=== PATIENT | male | born 1975 | race Caucasian/White ===

== ENCOUNTER 2023-10-22 20:11 | Emergency (ER) | payer SELFPAY ==
[2023-10-22 20:28] VITALS: BP 152/93; PULSE 70; RESP 18; TEMP 97.8
--- NOTE | 2023-10-22 20:30 | ED ---
Psych HPI - General Chief Complaint: Psychiatric Symptoms Stated Complaint: Mental health Time Seen by Provider: 10/22/23 20:29 Source: patient, RN notes reviewed Mode of arrival: ambulatory Limitations: no limitations - History of Present Illness Initial Comments: Quick note: Patient is a 48-year-old male presented to ER with chief complaint of depression and suicidal ideation. Patient states he has not been eating much and has not been able to sleep. Denies any alcohol use. He does not have a plan currently. Has a past medical history significant for bipolar disorder, anxiety and depression. - Related Data Home Medications Medication Instructions Recorded Confirmed Acetaminophen [Tylenol] 325 - 650 mg PO Q6H PRN 10/23/23 10/23/23 Atorvastatin [Lipitor] 20 mg PO HS 10/23/23 10/23/23 L.acidoph,Paracasei, B.lactis 1 cap PO DAILY 10/23/23 10/23/23 [Probiotic] Levocetirizine Dihydrochloride 5 mg PO HS 10/23/23 10/23/23 [Xyzal] Multivitamins, Thera [Multivitamin 1 tab PO DAILY 10/23/23 10/23/23 (formulary)] [place]-3/Dha/Epa/Fish Oil [Fish Oil 1 cap PO BID 10/23/23 10/23/23 1,000 mg Softgel] Omeprazole [PriLOSEC] 20 mg PO BID 10/23/23 10/23/23 Tamsulosin HCl [Flomax] 0.4 mg PO HS 10/23/23 10/23/23 Testosterone Cap Otc 1 tab PO DAILY 10/23/23 10/23/23 busPIRone HCl [Buspar] 10 mg PO BID 10/23/23 10/23/23 lamoTRIgine [LaMICtal] 150 mg PO BID 10/23/23 10/23/23 Allergies Allergy/AdvReac Type Severity Reaction Status Date / Time No Known Allergies Allergy Verified 10/23/23 18:09 Review of Systems ROS Statement: Those systems with pertinent positive or pertinent negative responses have been documented in the HPI. ROS Other: All systems not noted in ROS Statement are negative. Past Medical History Past Medical History: No Reported History Additional Past Surgical History / Comment(s): Rotator cuff Past Psychological History: Anxiety, Bipolar, Depression Smoking Status: Current every day smoker Past Alcohol Use History: None Reported Past Drug Use History: Marijuana General Exam - General Exam Comments Initial Comments: Visual Physical Exam Vital signs reviewed General: Well-appearing, nontoxic, no acute distress. Head: Normocephalic, atraumatic Eyes: PERRLA, EOMI ENT: Airway patent Chest: Nonlabored breathing Skin: No visual rash, normal skin tone Neuro: Alert and oriented 3 Musculoskeletal: No gross abnormalities Limitations: no limitations Course Vital Signs 10/22/23 20:20 Temperature 97.8 F Pulse Rate 70 Respiratory 18 Rate Blood Pressure 152/93 O2 Sat by Pulse 98 Oximetry Medical Decision Making - Medical Decision Making I performed the quick note portion of this chart. Electronically signed by Navarro Freeman PA-C Patient eloped prior to completion of medical treatment. - Lab Data Lab Results 10/22/23 Range/Units 21:15 Urine Opiates Screen Not Detected (NotDetected) Ur Oxycodone Screen Not Detected (NotDetected) Urine Methadone Screen Not Detected (NotDetected) Ur Barbiturates Screen Not Detected (NotDetected) U Tricyclic Antidepress Not Detected (NotDetected) Ur Phencyclidine Scrn Not Detected (NotDetected) Ur Amphetamines Screen Not Detected (NotDetected) U Methamphetamines Scrn Not Detected (NotDetected) U Benzodiazepines Scrn Not Detected (NotDetected) Urine Cocaine Screen Not Detected (NotDetected) U Marijuana (THC) Screen Detected H (NotDetected) Disposition Clinical Impression: Left against medical advice Disposition: LEFT AGAINST MEDICAL ADVICE Condition: Undetermined Referrals: Zack Conway MD [Primary Care Provider] - 1-2 days Time of Disposition: 21:49
[2023-10-22 22:04] LABS: Amphetamine Screen,Urine Not Detected (NotDetected); Barbiturate Screen,Urine Not Detected (NotDetected); Benzodiazepines Screen,Urine Not Detected (NotDetected); Cocaine Screen,Urine Not Detected (NotDetected); Methadone Screen, Urine Not Detected (NotDetected); Opiate Screen,Urine Not Detected (NotDetected); Oxycodone Screen, Urine Not Detected (NotDetected); Phencyclidine Screen,Urine Not Detected (NotDetected); Tricyclic Antidepressant,Urine Not Detected (NotDetected); Urn Cannabinoid Scrn Detected (NotDetected)
== END 2023-10-22 23:52 | disposition left against medical advice (07) ==
LOC: EC 20:11
DX: R45.851 Suicidal ideations (principal); F31.9 Bipolar disorder, unspecified; F41.9 Anxiety disorder, unspecified; F17.200 Nicotine dependence, unspecified, uncomplicated; F12.90 Cannabis use, unspecified, uncomplicated; Z79.899 Other long term (current) drug therapy; Z53.29 Procedure and treatment not carried out because of patient's decision for other reasons
CPT/HCPCS: 80306; 99284

== ENCOUNTER 2023-10-23 12:19 | Inpatient (IN) | payer OTHER ==
--- NOTE | 2023-10-23 12:54 | ED ---
Psych HPI - General Source: patient, family Mode of arrival: ambulatory <Helena Aguilar - Last Filed: 10/23/23 12:53> - General Source: patient, family, RN notes reviewed Mode of arrival: ambulatory Limitations: no limitations <Royce Moncada - Last Filed: 10/24/23 08:08> - General Chief Complaint: Psychiatric Symptoms Stated Complaint: Mental Health Time Seen by Provider: 10/23/23 12:30 - History of Present Illness Initial Comments: Connotepatient is a 48-year-old male with a history of bipolar, depression, and anxiety who presents with a chief complaint of feelings of hopelessness and suicidal ideation. Patient states this has been ongoing over the past few weeks. (Helena Aguilar) 48-year-old male presents emergency department with chief complaint of needing psychiatric evaluation. Patient states he is depressed, suicidal. Patient states he just been getting worse over the last few weeks. Patient states he is on some medications he used to see a counselor but due to financial reasons he has not been seeing them. Patient denies any homicidal ideation. Patient states that he jumped out of a second story building before trying to try to harm self. (Royce Moncada) - Related Data Home Medications Medication Instructions Recorded Confirmed Acetaminophen [Tylenol] 325 - 650 mg PO Q6H PRN 10/23/23 10/23/23 Atorvastatin [Lipitor] 20 mg PO HS 10/23/23 10/23/23 L.acidoph,Paracasei, B.lactis 1 cap PO DAILY 10/23/23 10/23/23 [Probiotic] Levocetirizine Dihydrochloride 5 mg PO HS 10/23/23 10/23/23 [Xyzal] Multivitamins, Thera [Multivitamin 1 tab PO DAILY 10/23/23 10/23/23 (formulary)] [place]-3/Dha/Epa/Fish Oil [Fish Oil 1 cap PO BID 10/23/23 10/23/23 1,000 mg Softgel] Omeprazole [PriLOSEC] 20 mg PO BID 10/23/23 10/23/23 Tamsulosin HCl [Flomax] 0.4 mg PO HS 10/23/23 10/23/23 Testosterone Cap Otc 1 tab PO DAILY 10/23/23 10/23/23 busPIRone HCl [Buspar] 10 mg PO BID 10/23/23 10/23/23 lamoTRIgine [LaMICtal] 150 mg PO BID 10/23/23 10/23/23 Allergies Allergy/AdvReac Type Severity Reaction Status Date / Time No Known Allergies Allergy Verified 10/23/23 18:09 Review of Systems ROS Other: All systems not noted in ROS Statement are negative. <Helena Aguilar - Last Filed: 10/23/23 12:53> ROS Other: All systems not noted in ROS Statement are negative. <Royce Moncada - Last Filed: 10/24/23 08:08> ROS Statement: Those systems with pertinent positive or pertinent negative responses have been documented in the HPI. Past Medical History Past Medical History: Hyperlipidemia Additional Past Surgical History / Comment(s): Rotator cuff Past Psychological History: Anxiety, Bipolar, Depression Smoking Status: Current every day smoker Past Alcohol Use History: None Reported Past Drug Use History: Marijuana <Helena Aguilar - Last Filed: 10/23/23 12:53> General Exam Limitations: no limitations <Helena Aguilar - Last Filed: 10/23/23 12:53> General appearance: alert, in no apparent distress Head exam: Present: atraumatic, normocephalic, normal inspection Eye exam: Present: normal appearance, PERRL, EOMI. Absent: scleral icterus, conjunctival injection, periorbital swelling Neck exam: Present: normal inspection. Absent: tenderness, meningismus, lymphadenopathy Respiratory exam: Present: normal lung sounds bilaterally. Absent: respiratory distress, wheezes, rales, rhonchi, stridor Cardiovascular Exam: Present: regular rate, normal rhythm, normal heart sounds. Absent: systolic murmur, diastolic murmur, rubs, gallop, clicks GI/Abdominal exam: Present: soft, normal bowel sounds. Absent: distended, tende rness, guarding, rebound, rigid Neurological exam: Present: alert, oriented X3 Psychiatric exam: Present: normal affect, normal mood <Royce Moncada - Last Filed: 10/24/23 08:08> - General Exam Comments Initial Comments: Visual Physical Exam Vital signs reviewed General: Well-appearing, nontoxic, no acute distress. Head: Normocephalic, atraumatic Eyes: PERRLA, EOMI ENT: Airway patent Chest: Nonlabored breathing Skin: No visual rash, normal skin tone Neuro: Alert and oriented 3 Musculoskeletal: No gross abnormalities (Helena Aguilar) Course Vital Signs 10/23/23 12:31 Temperature 98 F Pulse Rate 81 Respiratory 16 Rate Blood Pressure 144/81 O2 Sat by Pulse 100 Oximetry Medical Decision Making <Helena Aguilar - Last Filed: 10/23/23 12:53> - Lab Data Result diagrams: 10/23/23 13:13 10/23/23 13:13 <Royce Moncada - Last Filed: 10/24/23 08:08> - Medical Decision Making I completed the quick note portion of this chart signed Helena Aguilar PA-C (Helena Aguilar) Was pt. sent in by a medical professional or institution (PRAFUL Aguilera, CHEMICAL ETCHING PROCESSOR, urgent care, hospital, or detention...) When possible be specific @ -No Did you speak to anyone other than the patient for history (EMS, parent, family, police, friend...)? What history was obtained from this source @ -No Did you review nursing and triage notes (agree or disagree)? Why? @ -I reviewed and agree with nursing and triage notes Were old charts reviewed (outside hosp., previous admission, EMS record, old EKG, old radiological studies, urgent care reports/EKG's, detention records)? Report findings @ -No old charts were reviewed Differential Diagnosis (chest pain, altered mental status, abdominal pain women, abdominal pain men, vaginal bleeding, weakness, fever, dyspnea, syncope, headache, dizziness, GI bleed, back pain, seizure, CVA, palpatations, mental health, musculoskeletal)? @ -Differential Mental Health Depression, anxiety, bipolar, psychosis, schizophrenia, borderline personality, situational depression, adjustment disorder, behavioral disorder, brain tumor, malingering, substance abuse, encephalopathy, medication reaction, dementia, hypothyroidism, degenerative neurologic disorder, lupus.... This is not meant to be all-inclusive list EKG interpreted by me (3pts min.). @ -[None X-rays interpreted by me (1pt min.). @ -None done CT interpreted by me (1pt min.). @ -None done U/S interpreted by me (1pt. min.). @ -None done What testing was considered but not performed or refused? (CT, X-rays, U/S, labs)? Why? @ -None What meds were considered but not given or refused? Why? @ -None Did you discuss the management of the patient with other professionals (professionals i.e. , PA, CHEMICAL ETCHING PROCESSOR, lab, RT, psych nurse, social service director, water resources program director, teacher, data officer, bottle caser)? Give summary @ -EPS, psychiatrist evaluated patient recommends patient be admitted Was smoking cessation discussed for >3mins.? @ -No Was critical care preformed (if so, how long)? @ -No Were there social determinants of health that impacted care today? How? (Homelessness, low income, unemployed, alcoholism, drug addiction, transportation, low edu. Level, literacy, decrease access to med. care, group home, rehab)? @ -No Was there de-escalation of care discussed even if they declined (Discuss DNR or withdrawal of care, Hospice)? DNR status @ -No What co-morbidities impacted this encounter? (DM, HTN, Smoking, COPD, CAD, Cancer, CVA, ARF, Chemo, Hep., AIDS, mental health diagnosis, sleep apnea, morbid obesity)? @ -None Was patient admitted / discharged? Hospital course, mention meds given and route, prescriptions, significant lab abnormalities, going to OR and other pert inent info. @ -[Is admitted for psychiatric treatment 3 W. Undiagnosed new problem with uncertain prognosis? @ -No Drug Therapy requiring intensive monitoring for toxicity (Heparin, Nitro, Insulin, Cardizem)? @ -No Were any procedures done? @ -No Diagnosis/symptom? @ -[Depression suicide ideation Acute, or Chronic, or Acute on Chronic? @ -Acute Uncomplicated (without systemic symptoms) or Complicated (systemic symptoms)? @ -Uncomplicated Side effects of treatment? @ -[No Exacerbation, Progression, or Severe Exacerbation? @ -No Poses a threat to life or bodily function? How? (Chest pain, [place], CA, pneumonia, PE, COPD, DKA, ARF, appy, cholecystitis, CVA, Diverticulitis, Homicidal, Suicidal, threat to staff... and all critical care pts) @ -Yes suicidal (Royce Moncada) - Lab Data Lab Results 03/04/24 03/04/24 03/04/24 Range/Units 13:07 13:13 13:13 WBC 12.5 H (3.8-10.6) k/uL RBC 4.97 (4.30-5.90) m/uL Hgb 15.0 (13.0-17.5) gm/dL Hct 45.5 (39.0-53.0) % MCV 91.6 (80.0-100.0) fL MCH 30.3 (25.0-35.0) pg MCHC 33.1 (31.0-37.0) g/dL RDW 12.4 (11.5-15.5) % Plt Count 280 (150-450) k/uL MPV 7.2 Neutrophils % 77 % Lymphocytes % 13 % Monocytes % 5 % Eosinophils % 4 % Basophils % 1 % Neutrophils # 9.6 H (1.3-7.7) k/uL Lymphocytes # 1.6 (1.0-4.8) k/uL Monocytes # 0.6 (0-1.0) k/uL Eosinophils # 0.5 (0-0.7) k/uL Basophils # 0.1 (0-0.2) k/uL Sodium 144 (137-145) mmol/L Potassium 4.4 (3.5-5.1) mmol/L Chloride 106 (98-107) mmol/L Carbon Dioxide 28 (22-30) mmol/L Anion Gap 10 mmol/L BUN 13 (9-20) mg/dL Creatinine 0.96 (0.66-1.25) mg/dL Est GFR (CKD-EPI)AfAm >90 (>60 ml/min/1.73 sqM) Est GFR (CKD-EPI)NonAf >90 (>60 ml/min/1.73 sqM) Glucose 80 (74-99) mg/dL Calcium 10.0 (8.4-10.2) mg/dL Total Bilirubin 0.6 (0.2-1.3) mg/dL AST 29 (17-59) U/L ALT 33 (4-49) U/L Alkaline Phosphatase 92 (38-126) U/L Total Protein 7.5 (6.3-8.2) g/dL Albumin 5.1 H (3.5-5.0) g/dL Urine Color Colorless Urine Appearance Clear (Clear) Urine pH 6.5 (5.0-8.0) Ur Specific [place] 1.003 (1.001-1.035) Urine Protein Negative (Negative) Urine Glucose (UA) Negative (Negative) Urine Ketones Negative (Negative) Urine Blood Negative (Negative) Urine Nitrite Negative (Negative) Urine Bilirubin Negative (Negative) Urine Urobilinogen <2.0 (<2.0) mg/dL Ur Leukocyte Esterase Negative (Negative) Urine Opiates Screen Not Detected (NotDetected) Ur Oxycodone Screen Not Detected (NotDetected) Urine Methadone Screen Not Detected (NotDetected) Ur Barbiturates Screen Not Detected (NotDetected) U Tricyclic Antidepress Not Detected (NotDetected) Ur Phencyclidine Scrn Not Detected (NotDetected) Ur Amphetamines Screen Not Detected (NotDetected) U Methamphetamines Scrn Not Detected (NotDetected) U Benzodiazepines Scrn Not Detected (NotDetected) Urine Cocaine Screen Not Detected (NotDetected) U Marijuana (THC) Screen Detected H (NotDetected) SARS-CoV-2 (PCR) (Not Detectd) 10/23/23 Range/Units 20:46 WBC (3.8-10.6) k/uL RBC (4.30-5.90) m/uL Hgb (13.0-17.5) gm/dL Hct (39.0-53.0) % MCV (80.0-100.0) fL MCH (25.0-35.0) pg MCHC (31.0-37.0) g/dL RDW (11.5-15.5) % Plt Count (150-450) k/uL MPV Neutrophils % % Lymphocytes % % Monocytes % % Eosinophils % % Basophils % % Neutrophils # (1.3-7.7) k/uL Lymphocytes # (1.0-4.8) k/uL Monocytes # (0-1.0) k/uL Eosinophils # (0-0.7) k/uL Basophils # (0-0.2) k/uL Sodium (137-145) mmol/L Potassium (3.5-5.1) mmol/L Chloride (98-107) mmol/L Carbon Dioxide (22-30) mmol/L Anion Gap mmol/L BUN (9-20) mg/dL Creatinine (0.66-1.25) mg/dL Est GFR (CKD-EPI)AfAm (>60 ml/min/1.73 sqM) Est GFR (CKD-EPI)NonAf (>60 ml/min/1.73 sqM) Glucose (74-99) mg/dL Calcium (8.4-10.2) mg/dL Total Bilirubin (0.2-1.3) mg/dL AST (17-59) U/L ALT (4-49) U/L Alkaline Phosphatase (38-126) U/L Total Protein (6.3-8.2) g/dL Albumin (3.5-5.0) g/dL Urine Color Urine Appearance (Clear) Urine pH (5.0-8.0) Ur Specific [place] (1.001-1.035) Urine Protein (Negative) Urine Glucose (UA) (Negative) Urine Ketones (Negative) Urine Blood (Negative) Urine Nitrite (Negative) Urine Bilirubin (Negative) Urine Urobilinogen (<2.0) mg/dL Ur Leukocyte Esterase (Negative) Urine Opiates Screen (NotDetected) Ur Oxycodone Screen (NotDetected) Urine Methadone Screen (NotDetected) Ur Barbiturates Screen (NotDetected) U Tricyclic Antidepress (NotDetected) Ur Phencyclidine Scrn (NotDetected) Ur Amphetamines Screen (NotDetected) U Methamphetamines Scrn (NotDetected) U Benzodiazepines Scrn (NotDetected) Urine Cocaine Screen (NotDetected) U Marijuana (THC) Screen (NotDetected) SARS-CoV-2 (PCR) Not Detected (Not Detectd) Disposition <Helena Aguilar - Last Filed: 10/23/23 12:53> Time of Disposition: 08:08 <Royce Moncada - Last Filed: 10/24/23 08:08> Clinical Impression: Depression, Suicidal ideation Disposition: TRANSFER TO PSYCH HOSP/UNIT
[2023-10-23 13:19] LABS: Appearance,Urine Clear (Clear); Bilirubin,Urine Negative (Negative); Blood,Urine Negative (Negative); Color,Urine Colorless; Glucose,Urine (UA) Negative (Negative); Ketones,Urine Negative (Negative); Leukocyte Esterase,Urine Negative (Negative); Nitrite,Urine Negative (Negative); PH, Urine 6.5 (5.0-8.0); Protein,Urine Negative (Negative); Specific Gravity,Urine 1.003 (1.001-1.035); Urobilinogen,Urine <2.0 mg/dL (<2.0)
[2023-10-23 13:21] LABS: Basophils # (A) 0.1 k/uL (0-0.2); Basophils % (A) 1 %; Eosinophils # (A) 0.5 k/uL (0-0.7); Eosinophils % (A) 4 %; HCT 45.5 % (39.0-53.0); Lymphocytes # (A) 1.6 k/uL (1.0-4.8); Lymphocytes % (A) 13 %; MCH 30.3 pg (25.0-35.0); MCHC 33.1 g/dL (31.0-37.0); MCV 91.6 fL (80.0-100.0); Mean Platelet Volume 7.2; Monocytes # (A) 0.6 k/uL (0-1.0); Monocytes % (A) 5 %; Neutrophils # (A) 9.6 k/uL (1.3-7.7); Neutrophils % (A) 77 %; Platelet Count 280 k/uL (150-450); RBC 4.97 m/uL (4.30-5.90); RDW 12.4 % (11.5-15.5); WBC 12.5 k/uL (3.8-10.6)
[2023-10-23 13:37] LABS: Amphetamine Screen,Urine Not Detected (NotDetected); Barbiturate Screen,Urine Not Detected (NotDetected); Benzodiazepines Screen,Urine Not Detected (NotDetected); Cocaine Screen,Urine Not Detected (NotDetected); Methadone Screen, Urine Not Detected (NotDetected); Opiate Screen,Urine Not Detected (NotDetected); Oxycodone Screen, Urine Not Detected (NotDetected); Phencyclidine Screen,Urine Not Detected (NotDetected); Tricyclic Antidepressant,Urine Not Detected (NotDetected); Urn Cannabinoid Scrn Detected (NotDetected)
[2023-10-23 13:41] LABS: ALT 33 U/L (4-49); AST 29 U/L (17-59); African American GFR (CKD) >90 (>60 ml/min/1.73 sqM); Albumin 5.1 g/dL (3.5-5.0); Alkaline Phosphatase 92 U/L (38-126); Anion Gap 10 mmol/L; Blood Urea Nitrogen 13 mg/dL (9-20); Carbon Dioxide 28 mmol/L (22-30); Chloride 106 mmol/L (98-107); Glucose 80 mg/dL (74-99); Non-African American GFR(CKD) >90 (>60 ml/min/1.73 sqM); Potassium 4.4 mmol/L (3.5-5.1); Sodium 144 mmol/L (137-145); Total Bilirubin 0.6 mg/dL (0.2-1.3); Total Protein 7.5 g/dL (6.3-8.2)
[2023-10-23] MEDS: NICOTINE 21MG/24HR PATCH TRANSDERM STA (18:28)
[2023-10-23] MEDS ORDERED: IBUPROFEN 600 MG TAB PO PRN (21:49)
[2023-10-23] MEDS ORDERED: HALOPERIDOL LACTATE 5 MG/ML 1 ML VIAL IM PRN (21:49)
[2023-10-23] MEDS ORDERED: haloperidoL 5 MG TAB PO PRN (21:49)
[2023-10-23] MEDS ORDERED: MAGNESIUM HYDROXIDE 2,400 MG/30 ML CUP PO PRN (21:49)
[2023-10-23] MEDS ORDERED: LORazepam 2 MG/ML INJ IM PRN (21:49)
[2023-10-23] MEDS ORDERED: ACETAMINOPHEN TAB 325 MG TAB PO PRN (21:49)
[2023-10-23] MEDS ORDERED: LORazepam 1 MG TAB PO PRN (21:49)
[2023-10-23] MEDS ORDERED: MAG HYDROX/AL HYDROX/SIMETH 355 ML BOTTLE PO PRN (21:49)
--- NOTE | 2023-10-24 04:16 | P.MDCNMH ---
History of Present Illness H&P Date: 10/24/23 Chief Complaint: Medical eval 48-year-old male with no significant past medical history Patient coming in for evaluation of his mental health. Reported feeling hopeless and suicidal ideation. Patient has history of bipolar and depression Otherwise he denies any fevers chills cough sore throat chest pain trouble breathing nausea vomiting headache focal neurodeficits denies any changes in bowel or urinary habits Patient admits to tobacco smoking and marijuana denies any alcohol review of systems Pertinent positives as noted in HPI. All other systems were reviewed and are negative on exam Constitutional: No acute distress, Eyes: Anicteric sclerae, moist conjunctiva, Pupils equal round reactive to light ENMT: NC/AT Lungs: Clear to auscultation Clear to percussion Normal respiratory effort, no accessory muscle use Cardiovascular: Heart regular in rate and rhythm, No murmurs, gallops, or rubs No peripheral edema Abdominal: Soft Nontender, no guarding, rebound or rigidity Abdomen moving with respiration Normoactive bowel sounds Extremities: No digital cyanosis No clubbing Pedal pulses intact and symmetrical Radial pulses intact and symmetrical No calf tenderness Psychiatric: Alert and oriented to person, place and time Neuro Muscles Strength 5/5 in all 4 extremities Sensation to light touch grossly present throughout Cranial nerves II-XII grossly intact Past Medical History Past Medical History: Hyperlipidemia History of Any Multi-Drug Resistant Organisms: None Reported Additional Past Surgical History / Comment(s): Rotator cuff Past Anesthesia/Blood Transfusion Reactions: No Reported Reaction Past Psychological History: Anxiety, Bipolar, Depression Smoking Status: Current every day smoker Past Alcohol Use History: None Reported Past Drug Use History: Marijuana - Past Family History Father Family Medical History: Unable to Obtain Mother Family Medical History: Unable to Obtain Medications and Allergies Home Medications Medication Instructions Recorded Confirmed Type Acetaminophen [Tylenol] 325 - 650 mg PO Q6H PRN 10/23/23 10/23/23 History Atorvastatin [Lipitor] 20 mg PO HS 10/23/23 10/23/23 History L.acidoph,Paracasei, B.lactis 1 cap PO DAILY 10/23/23 10/23/23 History [Probiotic] Levocetirizine Dihydrochloride 5 mg PO HS 10/23/23 10/23/23 History [Xyzal] Multivitamins, Thera [Multivitamin 1 tab PO DAILY 10/23/23 10/23/23 History (formulary)] [place]-3/Dha/Epa/Fish Oil [Fish Oil 1 cap PO BID 10/23/23 10/23/23 History 1,000 mg Softgel] Omeprazole [PriLOSEC] 20 mg PO BID 10/23/23 10/23/23 History Tamsulosin HCl [Flomax] 0.4 mg PO HS 10/23/23 10/23/23 History Testosterone Cap Otc 1 tab PO DAILY 10/23/23 10/23/23 History busPIRone HCl [Buspar] 10 mg PO BID 10/23/23 10/23/23 History lamoTRIgine [LaMICtal] 150 mg PO BID 10/23/23 10/23/23 History Allergies Allergy/AdvReac Type Severity Reaction Status Date / Time No Known Allergies Allergy Verified 10/23/23 18:09 Physical Exam Vitals: Vital Signs Temp Pulse Pulse Resp BP BP Pulse Ox 10/23/23 22:56 98.1 F 69 18 134/79 100 10/23/23 12:31 98 F 81 16 144/81 100 Intake and Output 10/23/23 10/23/23 10/24/23 14:59 22:59 06:59 Other: Weight 81.647 kg 77.281 kg Cranial Nerve Examination - Cranial Nerves Cranial Nerve II- Optic: Intact Cranial Nerve III- Oculomotor: Intact Cranial Nerve IV- Trochlear: Intact Cranial Nerve V- Trigeminal: Intact Cranial Nerve - Abducens: Intact Cranial Nerve VII- Facial: Intact Cranial Nerve VIII- Auditory: Intact Cranial Nerve IX- Glossopharyngeal: Intact Cranial Nerve X- Vagus: Intact Cranial Nerve XI- Accessory: Intact Cranial Nerve XII- Hypoglossal: Intact Results CBC & Chem 7: 10/23/23 13:13 10/23/23 13:13 Labs: Abnormal Lab Results - Last 24 Hours (Table) 10/23/23 10/23/23 10/23/23 Range/Units 13:07 13:13 13:13 WBC 12.5 H (3.8-10.6) k/uL Neutrophils # 9.6 H (1.3-7.7) k/uL Albumin 5.1 H (3.5-5.0) g/dL U Marijuana (THC) Screen Detected H (NotDetected) Assessment and Plan Assessment: Depression suicidal ideation Management per psych Tobacco smoking Nicotine replacement therapy Patient counseled to quit smoking Blood work reviewed white count 12.5 afebrile no identifiable focus of infection Hemoglobin 15 unremarkable Renal function unremarkable sodium 144 potassium 4.4 BUN 13 creatinine 0.4 Urinalysis unremarkable Patient stable from medical standpoint Thank you for this consultation
[2023-10-24] MEDS: NICOTINE 21MG/24HR PATCH TRANSDERM SCH (09:04)
[2023-10-24] MEDS ORDERED: NICOTINE GUM (POLACRILEX) 2 MG GUM BUCCAL PRN (10:38)
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
[2023-10-24] MEDS: busPIRone HCl 10 MG TAB PO SCH (16:37)
[2023-10-24 18:57] LABS: Chol/HDL Ratio 4.24 Ratio; LDL Cholesterol,Calculated 128.8 mg/dL (0.0-131.0)
[2023-10-24] MEDS: lamoTRIgine 100 MG TAB PO SCH (21:31)
[2023-10-24] MEDS: LORATADINE 10 MG TAB PO SCH (21:31)
[2023-10-25] MEDS: LACTOBACILLUS ACIDOPHILUS/PECT 1 EACH CAPSULE PO SCH (09:07)
--- NOTE | 2023-10-25 09:19 | P.PN ---
Subjective Progress Note Date: 10/25/23 Principal diagnosis: Adjustment disorder with mixed emotional features Bipolar disorder by history Interpersonal family issues and conflicts Relationship problems Subjective data: She reports that his is coming to see him today He says that he is coping somewhat better Patient was more open about the issues at work where he states that his boss seemed to escalate on him and that he tried to talk over him so that he did not want to be yelled back the next day He states that he then started to cry on a regular basis and that his depression 10 to get worse and worse He says that he however feels calmer and more relaxed He denies any suicidal or homicidal ideations but admits that he is somewhat lost about how to cope with stressors Mental status exam: General Appearance: Patient appears to be stated age, fair hygiene and grooming. Behavior: Patient is cooperative with this interview Speech: Patient's speech is fluent and non-pressured. Mood/Affect: Patient reports their mood is flat affect is congruent and constricted. Suicidality/Homicidality: Patient denies having any homicidal ideation intent or plan. Denies any suicidal ideation, intent or plan today. However he admits feeling overwhelmed and helpless and hopeless Perceptions: Patient denies any visual hallucinations and denies any auditory hallucinations. Though content/process: There is no evidence of any delusional thought content and thought process is linear and goal-directed. Memory and concentration: AOX3, grossly intact for the purposes of this session. Can spell "WORLD" backwards Judgment and insight: Fair Diagnosis: Adjustment disorder with mixed emotional features Bipolar disorder mixed type by history Relationship problems Assessment/Plan: Continue with current diagnosis. Patient continues to meet criteria for inpatient psychiatric admission for symptom stabilization and safety. Continue other meds as ordered. We'll continue lamotrigine as prescribed along with buspirone Patient is a good candidate for referral to outpatient counseling and beer modification with assertiveness training and improving his communication and social skills This patient is oriented mood stabilizer we'll add Zoloft 50 mg daily to start within titrated to response Discussed effects and side effects Monitor for medication compliance and for any psychotropic medication side effects. Will continue to monitor ongoing response to treatment. Encouraged participation in milieu. real estate services coordinator on board for discharge planning Encourage the patient to participate in on the [place] activities Toni Lopez M.D. Objective - Vital Signs Vital signs: Vital Signs Temp 98.2 F 10/25/23 06:59 Pulse 74 10/25/23 06:59 Resp 16 10/25/23 06:59 BP 116/73 10/25/23 06:59 Pulse Ox 94 L 10/25/23 06:59 FiO2 - Labs CBC & Chem 7: 10/23/23 13:13 10/23/23 13:13 Labs: Abnormal Lab Results - Last 24 Hours (Table) 10/23/23 10/23/23 Range/Units 13:13 13:13 Hemoglobin A1c 6.3 H (<=6.0) % Cholesterol 201.00 H (0.00-200.00) mg/dL
[2023-10-25] MEDS: traZODone HCL 50 MG TAB PO SCH ×2 (09:47→21:21)
[2023-10-26 07:19] VITALS: BP 119/56; PULSE 58; RESP 14; TEMP 97.7
--- NOTE | 2023-10-26 08:42 | P.DS ---
Providers Date of admission: 10/23/23 21:26 Attending physician: Isak Kaur MD Consults: 10/23/23 21:49 Consult Physician Routine Consulting Provider: Art Starr Consult Reason/Comments: H&P and medical Do you want consulting provider notified?: Yes Primary care physician: Zack Conway - Discharge Diagnosis(es) (1) Bipolar disorder with depression Current Visit: Yes Status: Chronic Priority: Low Hospital Course: After hospitalization patient received a routine physical examination in no acute physical issues were identified at this time that require attention Psychiatric problems had a fight included psychomotor agitation and dysphoria self-esteem and confidence and poor coping skills Therapy has focused on providing supportive care improving his coping abilities with a multimodal treatment Patient responded favorably. At The time of discharge patient was not suicidal or homicidal is formal and operational judgment and insight appears to be improved Patient's this time does not exhibit any behavior dangerous to himself or others Patient is motivated for outpatient follow-up and treatment He was discharged in stable condition with recommendation follow-up as directed Active Medications Generic Name Dose Route Start Last Admin Trade Name Freq PRN Reason Stop Dose Admin Acetaminophen 650 mg 10/23/23 21:49 Acetaminophen Tab 325 Mg Tab PO Q4HR PRN Mild Pain (Scale 1 to 3) Al Hydroxide/Mg Hydroxide 30 ml 10/23/23 21:49 Mag Hydrox/Al Hydrox/Simeth 355 Ml Bottle PO Q4HR PRN GI Upset Buspirone HCl 10 mg 10/24/23 16:28 10/25/23 21:21 Buspirone Hcl 10 Mg Tab PO 10 mg BID YADIEL Administration Haloperidol 5 mg 10/23/23 21:49 Haloperidol 5 Mg Tab PO Q6HR PRN Agitation or Acute Psychosis Haloperidol Lactate 5 mg 10/23/23 21:49 Haloperidol Lactate 5 Mg/Ml 1 Ml Vial IM Q6HR PRN Agitation or Acute Psychosis Ibuprofen 600 mg 10/23/23 21:49 Ibuprofen 600 Mg Tab PO Q6HR PRN Moderate Pain (Scale 4 to 6) Lactobacillus Acidophilus 1 each 10/25/23 09:00 10/25/23 09:07 Lactobacillus Acidophilus/Pect 1 Each Capsule PO 1 each DAILY YADIEL Administration Lamotrigine 150 mg 10/24/23 21:00 10/25/23 21:22 Lamotrigine 100 Mg Tab PO 150 mg BID YADIEL Administration Loratadine 10 mg 10/24/23 21:00 10/25/23 21:21 Loratadine 10 Mg Tab PO 10 mg HS YADIEL Administration Magnesium Hydroxide 2,400 mg 10/23/23 21:49 Magnesium Hydroxide 2,400 Mg/30 Ml Cup PO DAILY PRN Constipation Nicotine 1 patch 10/24/23 09:00 10/25/23 09:07 Nicotine 21mg/24hr Patch TRANSDERM 1 patch DAILY YADIEL Administration Nicotine Polacrilex 2 mg 10/24/23 10:38 Nicotine Gum (Polacrilex) 2 Mg Gum BUCCAL Q2HR PRN Nicotine Cravings Sertraline HCl 50 mg 10/26/23 09:00 Sertraline 50 Mg Tab PO DAILY YADIEL Trazodone HCl 50 mg 10/25/23 21:00 10/25/23 21:21 Trazodone Hcl 50 Mg Tab PO 50 mg HS YADIEL Administration Patient Condition at Discharge: Good Plan - Discharge Summary Discharge Rx Participant: Yes New Discharge Prescriptions: No Action Testosterone Cap Otc 1 tab PO DAILY [place]-3/Dha/Epa/Fish Oil [Fish Oil 1,000 mg Softgel] 1 cap PO BID Omeprazole [PriLOSEC] 20 mg PO BID busPIRone HCl [Buspar] 10 mg PO BID Atorvastatin [Lipitor] 20 mg PO HS Acetaminophen [Tylenol] 325 - 650 mg PO Q6H PRN PRN Reason: Pain Or Fever > 100.5 L.acidoph,Paracasei, B.lactis [Probiotic] 1 cap PO DAILY Multivitamins, Thera [Multivitamin (formulary)] 1 tab PO DAILY Levocetirizine Dihydrochloride [Xyzal] 5 mg PO HS lamoTRIgine [LaMICtal] 150 mg PO BID Tamsulosin HCl [Flomax] 0.4 mg PO HS Discharge Medication List Acetaminophen [Tylenol] 325 - 650 mg PO Q6H PRN 10/23/23 [History] Atorvastatin [Lipitor] 20 mg PO HS 10/23/23 [History] L.acidoph,Paracasei, B.lactis [Probiotic] 1 cap PO DAILY 10/23/23 [History] Levocetirizine Dihydrochloride [Xyzal] 5 mg PO HS 10/23/23 [History] Multivitamins, Thera [Multivitamin (formulary)] 1 tab PO DAILY 10/23/23 [History] [place]-3/Dha/Epa/Fish Oil [Fish Oil 1,000 mg Softgel] 1 cap PO BID 10/23/23 [History] Omeprazole [PriLOSEC] 20 mg PO BID 10/23/23 [History] Tamsulosin HCl [Flomax] 0.4 mg PO HS 10/23/23 [History] Testosterone Cap Otc 1 tab PO DAILY 10/23/23 [History] busPIRone HCl [Buspar] 10 mg PO BID 10/23/23 [History] lamoTRIgine [LaMICtal] 150 mg PO BID 10/23/23 [History] Follow up Appointment(s)/Referral(s): Zack Conway MD [Primary Care Provider] - 1-2 days Activity/Diet/Wound Care/Special Instructions: Avoid the use of street drugs and alcohol. Take all medications as prescribed. When you are in need of refills on your medications, please contact your medical provider and/or outpatient psychiatrist/provider to have this done. Please go to your scheduled outpatient appointment for aftercare treatment. If symptoms return or become worse, call the crisis line at and/or go to the nearest emergency room for evaluation. National Suicide Hotline 463.
[2023-10-26] MEDS: SERTRALINE 50 MG TAB PO SCH (08:50)
== END 2023-10-26 13:12 | disposition home or self-care (01) | DRG 885 ==
LOC: EC 12:19 → 3MHU 21:26
PROVIDERS: ADMIT Psychiatry & Neurology Psychiatry; ATTEND Psychiatry & Neurology Psychiatry
DX: F31.9 Bipolar disorder, unspecified (principal); R45.851 Suicidal ideations; F43.29 Adjustment disorder with other symptoms; F17.210 Nicotine dependence, cigarettes, uncomplicated; E78.5 Hyperlipidemia, unspecified; Z71.6 Tobacco abuse counseling; Z79.899 Other long term (current) drug therapy; Z91.51 Personal history of suicidal behavior; Z59.82 Transportation insecurity; Z56.4 Discord with boss and workmates; Z63.8 Other specified problems related to primary support group
CPT/HCPCS: 36415; 80053; 80061; 80306; 81003; 82075; 83036; 84443; 85025; 87635; 99285

== ENCOUNTER 2024-03-16 08:45 | Inpatient (IN) | payer OTHER ==
--- NOTE | 2024-03-16 09:06 | ED ---
General Adult HPI - General Chief complaint: Extremity Injury, Upper Stated complaint: Infection in left hand Time Seen by Provider: 03/16/24 08:57 Source: patient, RN notes reviewed Mode of arrival: ambulatory Limitations: no limitations - History of Present Illness Initial comments: Patient is a 49-year-old male presenting to the emergency department with concerns for hand infection. Patient was doing work on his deck 2 days ago. Symptoms have progressively worsened since that time. Patient did see his doctor yesterday and had his tetanus updated as well as started on Bactrim. Symptoms have progressively worsened since that time. Patient has had fevers and chills through the night. Patient states discomfort is somewhat severe. Discomfort does increase with movement. - Related Data Home Medications Medication Instructions Recorded Confirmed Atorvastatin [Lipitor] 20 mg PO HS 10/23/23 10/23/23 Levocetirizine Dihydrochloride 5 mg PO HS 10/23/23 10/23/23 [Xyzal] Multivitamins, Thera [Multivitamin 1 tab PO DAILY 10/23/23 10/23/23 (formulary)] [place]-3/Dha/Epa/Fish Oil [Fish Oil 1 cap PO BID 10/23/23 10/23/23 1,000 mg Softgel] Omeprazole [PriLOSEC] 20 mg PO BID 10/23/23 10/23/23 Tamsulosin HCl [Flomax] 0.4 mg PO HS 10/23/23 10/23/23 Testosterone Cap Otc 1 tab PO DAILY 10/23/23 10/23/23 busPIRone HCl [Buspar] 10 mg PO BID 10/23/23 10/23/23 lamoTRIgine [LaMICtal] 150 mg PO BID 10/23/23 10/23/23 Previous Rx's Medication Instructions Recorded Sertraline [Zoloft] 50 mg PO DAILY 30 Days #30 tab 10/26/23 busPIRone HCl [Buspar] 10 mg PO BID tab 10/26/23 traZODone HCL [Desyrel] 50 mg PO HS 30 Days #30 tab 10/26/23 Allergies Allergy/AdvReac Type Severity Reaction Status Date / Time No Known Allergies Allergy Verified 10/23/23 18:09 Review of Systems ROS Statement: Those systems with pertinent positive or pertinent negative responses have been documented in the HPI. ROS Other: All systems not noted in ROS Statement are negative. Constitutional: Reports: as per HPI, fever, chills Eyes: Denies: eye pain ENT: Denies: ear pain Respiratory: Denies: cough Cardiovascular: Denies: chest pain Endocrine: Denies: fatigue Gastrointestinal: Denies: abdominal pain Musculoskeletal: Reports: as per HPI. Denies: back pain Skin: Reports: as per HPI Past Medical History Past Medical History: GERD/Reflux, Hyperlipidemia History of Any Multi-Drug Resistant Organisms: None Reported Past Surgical History: Orthopedic Surgery Additional Past Surgical History / Comment(s): Rotator cuff Past Anesthesia/Blood Transfusion Reactions: No Reported Reaction Past Psychological History: Anxiety, Bipolar, Depression Smoking Status: Current every day smoker Past Alcohol Use History: None Reported Past Drug Use History: Marijuana - Past Family History Father Family Medical History: Unable to Obtain Mother Family Medical History: Unable to Obtain General Exam Limitations: no limitations General appearance: alert, in no apparent distress Head exam: Present: normocephalic Eye exam: Present: normal appearance Neck exam: Present: normal inspection Respiratory exam: Present: normal lung sounds bilaterally Cardiovascular Exam: Present: regular rate, normal rhythm Expanded Peripheral pulses: 2+: Radial (L) GI/Abdominal exam: Present: soft. Absent: tenderness Extremities exam: Present: tenderness (Patient does have erythema of the left thenar eminence on the palmar side extending to the thumb. There is some disc omfort with passive extension. There is some swelling. There is tenderness over the flexor tendon. Distally sensation is intact. Patient does hold the thumb in partial flexion) Neurological exam: Present: alert Psychiatric exam: Present: normal affect, normal mood Skin exam: Present: erythema (Left palmar thenar eminence and thumb) Course Vital Signs 03/16/24 08:50 Temperature 98.7 F Pulse Rate 68 Respiratory 16 Rate Blood Pressure 125/78 O2 Sat by Pulse 98 Oximetry Medical Decision Making - Medical Decision Making Was pt. sent in by a medical professional or institution (, PA, REFRIGERATOR GLAZIER, urgent ca re, hospital, or long-term...) When possible be specific @ -No Did you speak to anyone other than the patient for history (EMS, parent, family, police, friend...)? What history was obtained from this source @ - is present and provides additional history that patient had tetanus updated yesterday as well as negative x-ray. Did you review nursing and triage notes (agree or disagree)? Why? @ -I reviewed and agree with nursing and triage notes Were old charts reviewed (outside hosp., previous admission, EMS record, old EKG, old radiological studies, urgent care reports/EKG's, long-term records)? Report findings @ -No old charts were reviewed Differential Diagnosis (chest pain, altered mental status, abdominal pain women, abdominal pain men, vaginal bleeding, weakness, fever, dyspnea, syncope, headache, dizziness, GI bleed, back pain, seizure, CVA, palpatations, mental health, musculoskeletal)? @ -Differential Fever: Pneumonia, viral URI, endocarditis, myocarditis, pericarditis, otitis, sinusitis, peritonsillar Abscess, retropharyngeal Abscess, epiglottitis, peritonitis, appendicitis, Renay cystitis, diverticulitis, hepatitis, colitis, UTI, PID, TOA, pyelonephritis, prostatitis, epididymitis, meningitis, encephalitis, pulmonary embolism, CVA, thyroid storm, pancreatitis, adrenal crisis, cavernous sinus thrombosis, this is not meant to be an all-inclusive list. EKG interpreted by me (3pts min.). @ -As above X-rays interpreted by me (1pt min.). @ -None done CT interpreted by me (1pt min.). @ -None done U/S interpreted by me (1pt. min.). @ -None done What testing was considered but not performed or refused? (CT, X-rays, U/S, labs)? Why? @ -Labs will be ordered What meds were considered but not given or refused? Why? @ -None Did you discuss the management of the patient with other professionals (professionals i.e. , PA, REFRIGERATOR GLAZIER, lab, RT, psych nurse, psychotherapist social worker, corporate lawyer, teacher, corporate responsibility officer, rehabilitation case coordinator)? Give summary @ -Orthopedics Dr. Koch who will consult. Also discussed with medicine Dr. Coe who will admit covering Dr. Conway Was smoking cessation discussed for >3mins.? @ -No Was critical care preformed (if so, how long)? @ -No Were there social determinants of health that impacted care today? How? (Homelessness, low income, unemployed, alcoholism, drug addiction, transportation, low edu. Level, literacy, decrease access to med. care, fpc, rehab)? @ -No Was there de-escalation of care discussed even if they declined (Discuss DNR or withdrawal of care, Hospice)? DNR status @ -No What co-morbidities impacted this encounter? (DM, HTN, Smoking, COPD, CAD, Cancer, CVA, ARF, Chemo, Hep., AIDS, mental health diagnosis, sleep apnea, morbid obesity)? @ -None Was patient admitted / discharged? Hospital course, mention meds given and route, prescriptions, significant lab abnormalities, going to OR and other pertinent info. @ -Patient presents with concern for early flexor tenosynovitis. Patient will be admitted with IV antibiotics and orthopedics. Undiagnosed new problem with uncertain prognosis? @ -No Drug Therapy requiring intensive monitoring for toxicity (Heparin, Nitro, Insulin, Cardizem)? @ -No Were any procedures done? @ -No Diagnosis/symptom? @ -Hand cellulitis Acute, or Chronic, or Acute on Chronic? @ -Acute Uncomplicated (without systemic symptoms) or Complicated (systemic symptoms)? @ -Default Side effects of treatment? @ -No Exacerbation, Progression, or Severe Exacerbation? @ -No Poses a threat to life or bodily function? How? (Chest pain, USA, ID, pneumonia, PE, COPD, DKA, ARF, appy, cholecystitis, CVA, Diverticulitis, Homicidal, Suicidal, threat to staff... and all critical care pts) @ -No - Lab Data Result diagrams: 03/16/24 09:18 Lab Results 03/16/24 Range/Units 09:18 WBC 13.4 H (3.8-10.6) k/uL RBC 4.38 (4.30-5.90) m/uL Hgb 13.2 (13.0-17.5) gm/dL Hct 39.7 (39.0-53.0) % MCV 90.6 (80.0-100.0) fL MCH 30.2 (25.0-35.0) pg MCHC 33.3 (31.0-37.0) g/dL RDW 12.9 (11.5-15.5) % Plt Count 249 (150-450) k/uL MPV 7.5 Neutrophils % 82 % Lymphocytes % 10 % Monocytes % 5 % Eosinophils % 2 % Basophils % 0 % Neutrophils # 11.0 H (1.3-7.7) k/uL Lymphocytes # 1.3 (1.0-4.8) k/uL Monocytes # 0.7 (0-1.0) k/uL Eosinophils # 0.3 (0-0.7) k/uL Basophils # 0.0 (0-0.2) k/uL Disposition Clinical Impression: Cellulitis of hand Disposition: ADMITTED IP TO THIS HOSP Is patient prescribed a controlled substance at d/c from ED?: No Referrals: Zack Conway MD [Primary Care Provider] - 1-2 days Time of Disposition: 09:46
[2024-03-16] MEDS ORDERED: VANCOMYCIN IV PER PHARMACY 1 EACH MISC MISCELLANE PRN (09:07)
[2024-03-16] MEDS ORDERED: ACETAMINOPHEN TAB 325 MG TAB PO PRN (09:16)
[2024-03-16] MEDS ORDERED: NALOXONE 0.4 MG/ML 1 ML VIAL IV PRN (09:16)
[2024-03-16 09:44] LABS: Basophils % (A) 0 %; Eosinophils # (A) 0.3 k/uL (0-0.7); Eosinophils % (A) 2 %; HCT 39.7 % (39.0-53.0); HGB 13.2 gm/dL (13.0-17.5); Lymphocytes # (A) 1.3 k/uL (1.0-4.8); Lymphocytes % (A) 10 %; MCH 30.2 pg (25.0-35.0); MCHC 33.3 g/dL (31.0-37.0); MCV 90.6 fL (80.0-100.0); Mean Platelet Volume 7.5; Monocytes # (A) 0.7 k/uL (0-1.0); Monocytes % (A) 5 %; Neutrophils % (A) 82 %; Platelet Count 249 k/uL (150-450); RBC 4.38 m/uL (4.30-5.90); RDW 12.9 % (11.5-15.5); WBC 13.4 k/uL (3.8-10.6)
[2024-03-16 09:51] LABS: INR 0.8 (<1.2); Partial Thromboplastin Time 30.4 sec (22.0-30.0); Prothrombin Time 9.6 sec (10.0-12.5)
[2024-03-16] MEDS: HYDROmorphone 1 MG/ML 1 ML SYRINGE IVP STA (09:55)
[2024-03-16] MEDS: AMPICILLIN-SULBACTAM 3 GM in SODIUM CHLORIDE 0.9% 100 ML IVPB SCH (09:55)
[2024-03-16] MEDS: SODIUM CHLORIDE 0.9% 1,000 ML IV SCH (09:55)
[2024-03-16 10:03] LABS: ALT 21 U/L (4-49); AST 25 U/L (17-59); African American GFR (CKD) >90 (>60 ml/min/1.73 sqM); Albumin 4.4 g/dL (3.5-5.0); Alkaline Phosphatase 92 U/L (38-126); Anion Gap 5 mmol/L; Blood Urea Nitrogen 9 mg/dL (9-20); Calcium 9.3 mg/dL (8.4-10.2); Carbon Dioxide 25 mmol/L (22-30); Chloride 109 mmol/L (98-107); Glucose 155 mg/dL (74-99); Non-African American GFR(CKD) >90 (>60 ml/min/1.73 sqM); Potassium 4.3 mmol/L (3.5-5.1); Sodium 139 mmol/L (137-145); Total Bilirubin 0.4 mg/dL (0.2-1.3); Total Protein 6.5 g/dL (6.3-8.2)
[2024-03-16] MEDS: VANCOMYCIN 1,500 MG in SODIUM CHLORIDE 0.9% 500 ML 500 ML IVPB ONE (10:30)
--- NOTE | 2024-03-16 10:44 | P.CNOR ---
History of Present Illness - HPI Consult date: 03/16/24 Consult reason: other (Left hand pain.) History of present illness: Is a 49-year-old male who developed left hand and thumb pain and swelling over the past several days. He states that he had been working on building a dock with his friend over the course of 4 days. He states that on Monday this past week he began noticing swelling to the hand and thumb. He went to urgent care yesterday and was placed on oral antibiotics. He woke up early this morning with significant swelling and redness. He presented to the emergency department. He is admitted for IV antibiotics and we are consulted for orthopedic evaluation of the left hand. Past Medical History Past Medical History: GERD/Reflux, Hyperlipidemia History of Any Multi-Drug Resistant Organisms: None Reported Past Surgical History: Orthopedic Surgery Additional Past Surgical History / Comment(s): Rotator cuff Past Anesthesia/Blood Transfusion Reactions: No Reported Reaction Past Psychological History: Anxiety, Bipolar, Depression Smoking Status: Current every day smoker Past Alcohol Use History: None Reported Past Drug Use History: Marijuana - Past Family History Father Family Medical History: Unable to Obtain Mother Family Medical History: Unable to Obtain Medications and Allergies Home Medications Medication Instructions Recorded Confirmed Type Atorvastatin [Lipitor] 20 mg PO HS 10/23/23 03/16/24 History Levocetirizine Dihydrochloride 5 mg PO HS 10/23/23 03/16/24 History [Xyzal] Multivitamins, Thera [Multivitamin 1 tab PO DAILY 10/23/23 03/16/24 History (formulary)] [place]-3/Dha/Epa/Fish Oil [Fish Oil 1 cap PO BID 10/23/23 03/16/24 History 1,000 mg Softgel] Tamsulosin HCl [Flomax] 0.4 mg PO HS 10/23/23 03/16/24 History Testosterone Cap Otc 1 tab PO DAILY 10/23/23 03/16/24 History lamoTRIgine [LaMICtal] 150 mg PO BID 10/23/23 03/16/24 History Cariprazine HCl [Vraylar] 1.5 mg PO HS 03/16/24 03/16/24 History Omeprazole Magnesium [PriLOSEC OTC] 20 mg PO BID 03/16/24 03/16/24 History Propranolol LA [Inderal LA] 60 mg PO BID 03/16/24 03/16/24 History Sertraline [Zoloft] 50 mg PO HS 03/16/24 03/16/24 History Sulfamethox-Tmp 800-160Mg [Bactrim 1 tab PO BID 03/16/24 03/16/24 History DS 800-160 mg] busPIRone HCl [Buspar] 20 mg PO BID 03/16/24 03/16/24 History Allergies Allergy/AdvReac Type Severity Reaction Status Date / Time No Known Allergies Allergy Verified 03/16/24 10:53 Physical Examination Osteopathic Statement: *. No significant issues noted on an osteopathic structural exam other than those noted in the History and Physical/Consult. This is a 49-year-old male in no acute distress. He is alert and oriented x 3. Exam of the left hand reveals significant swelling and mild erythema. There is a small puncture in the thenar area of the hand on the palmar side. He is able to flex the thumb slightly. He is able to nearly fully extend the thumb. He does have significant pain with motion of the thumb. There is tenderness palpation about the palmar aspect of the thumb down into the thenar eminence. There is mild soft tissue swelling developing on the volar aspect of the wrist. He has fairly good wrist motion at this time. The remaining fingers have minimal swelling. Neurovascular status to the upper extremity is intact. Results - Labs Labs: Abnormal Lab Results - Last 24 Hours (Table) 03/16/24 03/16/24 03/16/24 Range/Units 09:18 09:18 09:18 WBC 13.4 H (3.8-10.6) k/uL Neutrophils # 11.0 H (1.3-7.7) k/uL PT 9.6 L (10.0-12.5) sec APTT 30.4 H (22.0-30.0) sec Chloride 109 H (98-107) mmol/L Glucose 155 H (74-99) mg/dL H & H 03/16/24 Range/Units 09:18 Hgb 13.2 (13.0-17.5) gm/dL Hct 39.7 (39.0-53.0) % Coagulation 03/16/24 Range/Units 09:18 INR 0.8 (<1.2) Result Diagrams: 03/17/24 02:49 07/28/24 02:49 Assessment and Plan (1) Cellulitis of hand Current Visit: Yes Status: Acute Code(s): L03.119 - CELLULITIS OF UNSPECIFIED PART OF LIMB SNOMED Code(s): 36100345 Plan: The clinical findings are discussed with the patient and his . It is recommended he continue on IV antibiotics for 24 hours. We will plan for possible surgical debridement of the thumb and hand tomorrow morning if imp rovement is inadequate. I will add moist heat to the hand today. The case was reviewed with Meenakshi. Agree with above. The patient has findings concerning for a deep infection. He has failed oral ABX. We will start IV ABX but will follow closely. If there is not marked improvement in the morning, we will proceed with an I&D.
--- NOTE | 2024-03-16 11:07 | P.HPIM ---
History of Present Illness H&P Date: 03/16/24 History of Presenting Illness: Patient is a 49-year-old male with a past medical history of hypertension, hyperlipidemia, GERD, bipolar disorder, anxiety, nicotine dependence and cannabinoid use. He presented to the emergency department secondary to concerns of left hand pain concerning for infection. Patient reports that he was working on a deck outside and they are cut or got a splinter in his hand. Patient reports initially he squeezed some clear fluid out of it and it seemed to be okay but 2 days ago he developed some redness and pain and went to his PCPs office yesterday where he was given a tetanus shot and started on oral antibiotics with Bactrim. Patient reports over the past 24 hours the swelling and pain significantly worsened accompanied by fevers and chills and he is now having limited movement of his thumb so he came to the emergency department for further evaluation. Upon arrival to our facility patient underwent evaluation in the ER. Vital signs upon arrival show blood pressure 125/78, heart rate 68, respiratory rate 16, temp 98.7 F, and SpO2 of 98% on room air. Labs completed and reviewed. CBC showing leukocytosis with WBC count of 13.4. BMP showing hyperchloremia with chloride of 109 and mild hyperglycemia with glucose of 155. Lactic acid was normal findings at 1.6. Liver profile was unremarkable. Patient was started on IV antibiotics with Unasyn admitted under services with consultation to orthopedic surgery team. Review of systems: Pertinent positives and negatives as discussed in HPI, a complete review of systems was performed and all other systems are negative. Physical exam: Vital signs reviewed and stable. General: Nontoxic, no distress and appears stated age. Derm: Skin warm and dry, normal coloration for ethnicity. Head: Atraumatic, normocephalic and symmetric. Eyes: EOMs intact, no lid lag, and anicteric sclera Mouth: no lip lesions, mucus membranes moist Cardiovascular: regular rate and rhythm with normal S1S2, no murmur, positive posterior tibial pulses bilaterally, and cap refill < 2 seconds. Lungs: Respirations even, regular, and unlabored on room air. Lungs CTA bilaterally, no rhonchi, no rales, no wheezing, and no accessory muscle usage. Abdominal: soft, nontender to palpation, no guarding, no appreciable organomegaly Ext:. No gross muscle atrophy, no edema, no contractures. Patient with moderate swelling and erythema to the palmar region of the left hand extending radially from wrist down intto his thumb. Patient with limited movement of thumb and unable to make a fist secondary to pain and swelling. Patient unable to flex or fully extend thumb secondary to swelling and pain. Small scab was noted no active drainage or bleeding noted. Neuro: Speech clear, face symmetrical and CN II-XII grossly intact with no noted focal neuro deficits Psych: Alert and oriented to person, place, time, and situation. Appropriate and pleasant affect. Assessment and Plan of Care: Cellulitis of the left hand Leukocytosis secondary to above -Continue IV antibiotics with Unasyn 3 g every 8 hours -Follow-up on blood culture results -Orthopedic surgery team following, planning to take patient for surgical I&D tomorrow morning -Continue symptomatic care and pain management -Obtain ESR and CRP -Repeat CBC to monitor for improvement of leukocytosis -N.p.o. after midnight for planned surgical procedure Hypertension Hyperlipidemia Bipolar disorder Anxiety Patient to continue daily medication regimen with atorvastatin 20 mg nightly, BuSpar 20 mg twice daily, Vraylar 1.5 mg nightly, Lamictal 150 mg twice daily, propranolol 60 mg twice daily, and Zoloft 50 mg nightly, GERD Continue daily medication regimen with Protonix 40 mg twice daily. BPH Continue Flomax 0.4 mg nightly. Data and imaging reviewed: As stated above in HPI The patient is admitted with an anticipated greater than 2 midnight stay for evaluation of cellulitis of left hand CODE STATUS: Full code DVT prophylaxis: Lovenox Anticipated discharge date: Pending clinical course Anticipated discharge place: Home Patient was seen independently by Nurse Practitioner. This document was prepared using [employer] dictation software. Please allow for errors in supervisor metalizing while rare they do occur. . I reviewed the documentation as provided by the LOLY above, who is the original author of this note. I agree with the documented assessment and plan, with the following changes: none Past Medical History Past Medical History: GERD/Reflux, Hyperlipidemia History of Any Multi-Drug Resistant Organisms: None Reported Past Surgical History: Orthopedic Surgery Additional Past Surgical History / Comment(s): Rotator cuff Past Anesthesia/Blood Transfusion Reactions: No Reported Reaction Past Psychological History: Anxiety, Bipolar, Depression Smoking Status: Current every day smoker Past Alcohol Use History: None Reported Past Drug Use History: Marijuana - Past Family History Father Family Medical History: Unable to Obtain Mother Family Medical History: Unable to Obtain Medications and Allergies Home Medications Medication Instructions Recorded Confirmed Type Atorvastatin [Lipitor] 20 mg PO HS 10/23/23 03/16/24 History Levocetirizine Dihydrochloride 5 mg PO HS 10/23/23 03/16/24 History [Xyzal] Multivitamins, Thera [Multivitamin 1 tab PO DAILY 10/23/23 03/16/24 History (formulary)] [place]-3/Dha/Epa/Fish Oil [Fish Oil 1 cap PO BID 10/23/23 03/16/24 History 1,000 mg Softgel] Tamsulosin HCl [Flomax] 0.4 mg PO HS 10/23/23 03/16/24 History Testosterone Cap Otc 1 tab PO DAILY 10/23/23 03/16/24 History lamoTRIgine [LaMICtal] 150 mg PO BID 10/23/23 03/16/24 History Cariprazine HCl [Vraylar] 1.5 mg PO HS 03/16/24 03/16/24 History Omeprazole Magnesium [PriLOSEC OTC] 20 mg PO BID 03/16/24 03/16/24 History Propranolol LA [Inderal LA] 60 mg PO BID 03/16/24 03/16/24 History Sertraline [Zoloft] 50 mg PO HS 03/16/24 03/16/24 History Sulfamethox-Tmp 800-160Mg [Bactrim 1 tab PO BID 03/16/24 03/16/24 History DS 800-160 mg] busPIRone HCl [Buspar] 20 mg PO BID 03/16/24 03/16/24 History Allergies Allergy/AdvReac Type Severity Reaction Status Date / Time No Known Allergies Allergy Verified 03/16/24 10:53 Physical Exam Vitals: Vital Signs Temp Pulse Resp BP Pulse Ox 03/16/24 08:50 98.7 F 68 16 125/78 98 Intake and Output 03/15/24 03/16/24 03/16/24 22:59 06:59 14:59 Other: Weight 84.822 kg Results CBC & Chem 7: 03/17/24 02:49 03/18/24 08:12 Labs: Abnormal Lab Results - Last 24 Hours (Table) 03/16/24 03/16/24 03/16/24 Range/Units 09:18 09:18 09:18 WBC 13.4 H (3.8-10.6) k/uL Neutrophils # 11.0 H (1.3-7.7) k/uL PT 9.6 L (10.0-12.5) sec APTT 30.4 H (22.0-30.0) sec Chloride 109 H (98-107) mmol/L Glucose 155 H (74-99) mg/dL
[2024-03-16] MEDS: NICOTINE 21MG/24HR PATCH TRANSDERM SCH (17:41)
[2024-03-16] MEDS: PANTOPRAZOLE 40 MG TABLET PO SCH (17:41)
[2024-03-16] MEDS: HYDROmorphone 1 MG/ML 1 ML SYRINGE IVP PRN (18:29)
[2024-03-16] MEDS: lamoTRIgine 100 MG TAB PO SCH (20:05)
[2024-03-16] MEDS: ATORVASTATIN 20 MG TAB PO SCH (20:05)
[2024-03-16] MEDS: PROPRANOLOL LA 60 MG CAP.SA.24H PO SCH (20:07)
[2024-03-16] MEDS: SERTRALINE 50 MG TAB PO SCH (20:08)
[2024-03-16] MEDS: LORATADINE 10 MG TAB PO SCH (20:08)
[2024-03-16] MEDS: TAMSULOSIN 0.4 MG CAP.ER.24H PO SCH (20:08)
[2024-03-16] MEDS: busPIRone HCl 10 MG TAB PO SCH (20:08)
[2024-03-16] MEDS: VANCOMYCIN 1,500 MG in SODIUM CHLORIDE 0.9% 500 ML 500 ML IVPB SCH (20:09)
[2024-03-16] MEDS ORDERED: NON FORMULARY DRUG (Omega-3/Dha/Epa/Fish Oil [Fish Oil 1,000 Mg Softgel] 1 EACH Capsule) PO SCH (21:00)
[2024-03-16] MEDS: HYDROmorphone 0.5 MG/0.5 ML SYRINGE IVP PRN (22:12)
[2024-03-17 03:43] LABS: ALT 18 U/L (4-49); AST 22 U/L (17-59); African American GFR (CKD) >90 (>60 ml/min/1.73 sqM); Albumin 3.8 g/dL (3.5-5.0); Albumin/Globulin Ratio 1.8; Alkaline Phosphatase 84 U/L (38-126); Anion Gap 5 mmol/L; Blood Urea Nitrogen 9 mg/dL (9-20); Calcium 8.8 mg/dL (8.4-10.2); Carbon Dioxide 24 mmol/L (22-30); Chloride 109 mmol/L (98-107); Globulin 2.1 g/dL; Glucose 102 mg/dL (74-99); Non-African American GFR(CKD) >90 (>60 ml/min/1.73 sqM); Sodium 138 mmol/L (137-145); Total Bilirubin 0.7 mg/dL (0.2-1.3); Total Protein 5.9 g/dL (6.3-8.2)
[2024-03-17 04:12] LABS: Basophils % (A) 0 %; Eosinophils # (A) 0.2 k/uL (0-0.7); Eosinophils % (A) 2 %; HCT 38.4 % (39.0-53.0); HGB 12.8 gm/dL (13.0-17.5); Lymphocytes # (A) 1.6 k/uL (1.0-4.8); Lymphocytes % (A) 13 %; MCH 30.3 pg (25.0-35.0); MCHC 33.4 g/dL (31.0-37.0); MCV 90.8 fL (80.0-100.0); Mean Platelet Volume 7.5; Monocytes # (A) 0.9 k/uL (0-1.0); Monocytes % (A) 7 %; Neutrophils % (A) 78 %; Platelet Count 211 k/uL (150-450); RBC 4.23 m/uL (4.30-5.90); RDW 12.8 % (11.5-15.5); WBC 12.9 k/uL (3.8-10.6)
[2024-03-17] MEDS: MULTIVITAMINS, THERA 1 EACH TAB PO SCH (08:24)
[2024-03-17] MEDS ORDERED: LIDOCAINE 1% INJ 10MG/ML (20 ML MDV) ONE (08:59)
[2024-03-17] MEDS ORDERED: MIDAZOLAM 2 MG/2 ML VIAL ONE (08:59)
[2024-03-17] MEDS ORDERED: fentaNYL (PF) 50 MCG/ML 2 ML AMP ONE (08:59)
[2024-03-17] MEDS ORDERED: PROPOFOL 10 MG/ML 20 ML VIAL IV ONE (08:59)
[2024-03-17] MEDS ORDERED: ePHEDrine 50 MG/ML 1 ML VIAL ONE (08:59)
[2024-03-17] MEDS: SODIUM CHLORIDE 0.9% 1,000 ML IV ONE (09:06)
[2024-03-17] MEDS: LACTATED RINGERS 1,000 ML IV ONE (09:36)
[2024-03-17] MEDS ORDERED: HYDROcodone/APAP 5-325MG 1 EACH TAB PO PRN (09:56)
[2024-03-17] MEDS: BACITRACIN OINT 1 EACH PACKET TOPICAL ONE (09:59)
[2024-03-17] MEDS: ENOXAPARIN 40 MG/0.4 ML SYRINGE SQ SCH (11:24)
[2024-03-17] MEDS: HYDROmorphone 1 MG/ML 1 ML SYRINGE IVP PRN (11:36)
--- NOTE | 2024-03-17 11:42 | P.PN ---
Subjective Progress Note Date: 03/17/24 Principal diagnosis: I reviewed the documentation as provided by the LOLY above, who is the original author of this note. I agree with the documented assessment and plan, with the following changes: none Hospital course: Patient is a 49-year-old male with a past medical history of hypertension, hyperlipidemia, GERD, bipolar disorder, anxiety, nicotine dependence and cannabinoid use. He presented to the emergency department secondary to concerns of left hand pain concerning for infection. Patient reports that he was working on a deck outside and they are cut or got a splinter in his hand. Patient repor ts initially he squeezed some clear fluid out of it and it seemed to be okay but 2 days ago he developed some redness and pain and went to his PCPs office yesterday where he was given a tetanus shot and started on oral antibiotics with Bactrim. Patient reports over the past 24 hours the swelling and pain significantly worsened accompanied by fevers and chills and he is now having limited movement of his thumb so he came to the emergency department for further evaluation. Upon arrival to our facility patient underwent evaluation in the ER. Vital signs upon arrival show blood pressure 125/78, heart rate 68, respiratory rate 16, temp 98.7 F, and SpO2 of 98% on room air. Labs completed and reviewed. CBC showing leukocytosis with WBC count of 13.4. BMP showing hyperchloremia with chloride of 109 and mild hyperglycemia with glucose of 155. Lactic acid was normal findings at 1.6. Liver profile was unremarkable. Patient was started on IV antibiotics with Unasyn admitted under services with consultation to orthopedic surgery team. Physical exam: Patient seen and fully evaluated at bedside this morning upon returning from surgical I&D of left hand/thumb. Dressing intact. Patient denies having any pain or complaints at this time. Vital signs reviewed and stable. General: Nontoxic, no distress and appears stated age. Derm: Skin warm and dry, normal coloration for ethnicity. Head: Atraumatic, normocephalic and symmetric. Eyes: EOMs intact, no lid lag, and anicteric sclera Mouth: no lip lesions, mucus membranes moist Cardiovascular: regular rate and rhythm with normal S1S2, no murmur, positive posterior tibial pulses bilaterally, and cap refill < 2 seconds. Lungs: Respirations even, regular, and unlabored on room air. Lungs CTA bilaterally, no rhonchi, no rales, no wheezing, and no accessory muscle usage. Abdominal: soft, nontender to palpation, no guarding, no appreciable organomegaly Ext:. No gross muscle atrophy, no edema, no contractures. Postoperative dressing with Cl wrap intact to left hand and thumb Neuro: Speech clear, face symmetrical and CN II-XII grossly intact with no noted focal neuro deficits Psych: Alert and oriented to person, place, time, and situation. Appropriate and pleasant affect. Assessment and Plan of Care: Cellulitis of the left hand Leukocytosis secondary to above -Continue IV antibiotics with Unasyn 3 g every 8 hours -Follow-up on blood culture and wound culture results -Orthopedic surgery team following, planning to take ptook patient for surgical I&D this morning. -Continue symptomatic care and pain management -ESR was elevated at 20 and CRP of 4.4. -Repeat CBC to monitor for improvement of leukocytosis Hypertension Hyperlipidemia Bipolar disorder Anxiety Patient to continue daily medication regimen with atorvastatin 20 mg nightly, BuSpar 20 mg twice daily, Vraylar 1.5 mg nightly, Lamictal 150 mg twice daily, propranolol 60 mg twice daily, and Zoloft 50 mg nightly, GERD Continue daily medication regimen with Protonix 40 mg twice daily. BPH Continue Flomax 0.4 mg nightly. Data and imaging reviewed: Labs reviewed. ESR 20. CRP 4.4. Repeat morning CBC showing slight improvement of hemoglobin down to 12.9 from previous 13.4 and mild normocytic anemia with hemoglobin of 12.8. BMP showing hyperchloremia with chloride of 109. Blood glucose 102. Liver profile unremarkable. Vital signs reviewed. Blood pressure 127/72, heart rate 70, respiratory rate 18, temp 97.0 F, and SpO2 of 99% on 2 L. CODE STATUS: Full code DVT prophylaxis: Lovenox Anticipated discharge date: Pending clinical course Anticipated discharge place: Home Patient was seen independently by Nurse Practitioner. This document was prepared using [employer] dictation software. Please allow for errors in truck rental clerk while rare they do occur. . Objective - Vital Signs Vital signs: Vital Signs Temp 98.7 F 03/17/24 07:00 Pulse 60 03/17/24 07:00 Resp 16 03/17/24 07:00 BP 115/97 03/17/24 07:00 Pulse Ox 95 03/17/24 07:00 FiO2 Intake & Output 03/16/24 03/17/24 03/17/24 18:59 06:59 18:59 Intake Total 260 1880 Balance 260 1880 Weight 84.822 kg Intake: Intake, IV Titration 260 1640 Amount Ampicillin-Sulbactam 3 gm 100 In Sodium Chloride 0.9% 100 ml @ 200 mls/hr IVPB Q8HR [facility] Rx#:[id number] Sodium Chloride 0.9% 1, 260 1040 000 ml @ 130 mls/hr IV . Q7H42M [facility] Rx#:[id number] Vancomycin 1,500 mg In 500 Sodium Chloride 0.9% 500 ml 500 ml @ 167 mls/hr IVPB Q12H [facility] Rx#: [id number] Oral 0 240 Other: Voiding Method Toilet # Voids 1 - Labs CBC & Chem 7: 03/17/24 02:49 03/18/24 08:12 Labs: Abnormal Lab Results - Last 24 Hours (Table) 03/16/24 03/16/24 03/16/24 Range/Units 09:18 09:18 09:18 WBC 13.4 H (3.8-10.6) k/uL RBC (4.30-5.90) m/uL Hgb (13.0-17.5) gm/dL Hct (39.0-53.0) % Neutrophils # 11.0 H (1.3-7.7) k/uL ESR (0-15) mm/Hr PT 9.6 L (10.0-12.5) sec APTT 30.4 H (22.0-30.0) sec Chloride 109 H (98-107) mmol/L Glucose 155 H (74-99) mg/dL C-Reactive Protein (<1.0) mg/dL Total Protein (6.3-8.2) g/dL 03/16/24 03/16/24 03/17/24 Range/Units 09:18 09:18 02:49 WBC 12.9 H (3.8-10.6) k/uL RBC 4.23 L (4.30-5.90) m/uL Hgb 12.8 L (13.0-17.5) gm/dL Hct 38.4 L (39.0-53.0) % Neutrophils # 10.0 H (1.3-7.7) k/uL ESR 20 H (0-15) mm/Hr PT (10.0-12.5) sec APTT (22.0-30.0) sec Chloride (98-107) mmol/L Glucose (74-99) mg/dL C-Reactive Protein 4.4 H (<1.0) mg/dL Total Protein (6.3-8.2) g/dL 03/17/24 Range/Units 02:49 WBC (3.8-10.6) k/uL RBC (4.30-5.90) m/uL Hgb (13.0-17.5) gm/dL Hct (39.0-53.0) % Neutrophils # (1.3-7.7) k/uL ESR (0-15) mm/Hr PT (10.0-12.5) sec APTT (22.0-30.0) sec Chloride 109 H (98-107) mmol/L Glucose 102 H (74-99) mg/dL C-Reactive Protein (<1.0) mg/dL Total Protein 5.9 L (6.3-8.2) g/dL
--- NOTE | 2024-03-17 11:59 | P.OP ---
Date of Procedure: 03/17/24 Preoperative Diagnosis: Left thumb purulent flexortenosynovitis Postoperative Diagnosis: same Procedure(s) Performed: Left thumb incision and drainage Anesthesia: SAIMA Surgeon: Lexus Koch Estimated Blood Loss (ml): 10 Pathology: none sent Condition: stable Disposition: PACU Indications for Procedure: The patient injured his hand while working on a deck. There may have been a splinter that pierced his hand at the base of the thumb. In the last couple of days, it has gotten red and painful. He was started on oral ABX but continued to worsen. He has been on IV antibiotics since yesterday without improvement. He now has pain with passive extension of the thumb. We have decided to proceed with an I&D. Description of Procedure: The extremity was prepped and draped in normal sterile fashion. A formal timeout was performed. An esmarch was used to exanguinate and as a tourniquet. A vikram and midaxial incision was utilized from just proximal to the puncture wound to the thumb pulp. Dissection was carried down to the flexor tendon with care taken to protect the neurovascular bundles. There was rebecca purulence noted about the flexor tendon, particularly at the distal end. The entire sravani system was exposed. A 14g angiocath was inserted proximal to the A1 sravani and 50cc of warm saline was flushed through the sravani system. In addition, all infected and compromised tissue was excised and the surrounding tissue was gently debrided with a wet raytec. Next 1L of normal saline was used to wash the wound. The thumb was flexed and pressure along the deep spaces of the hand did not express any further purulence. The soft tissue envelope was quite friable and swollen. The wound was loosely approximated with 4.0 nylon suture. It was dressed with antibiotic ointment, adaptic, gauze, webril, and placed in a thumb spica splint for support. Patient was aroused by the anesthesia team and brought to PACU in stable condition.
--- NOTE | 2024-03-17 12:09 | P.PN ---
Progress Note - Text Progress Note Date: 03/17/24 Upon my arrival, the patient had already been brought back to the OR and anesthesia had been initiated. While I was unable to assess the patient prior to the procedure, I was familiar with the case as the patient had been evaluated thoroughly by Meenakshi Weeks and had given informed consent for the procedure. Per staff, he did not express any further questions in the preop area. I examined his wound and agreed that an urgent I&D was necessary. He has failed oral and IV ABX and it has now developed into full flexor tenosynovitis. Given the urgency of the procedure, I decided to proceed.
[2024-03-17] MEDS: HYDROmorphone 0.5 MG/0.5 ML SYRINGE IVP PRN (23:50)
--- NOTE | 2024-03-18 07:14 | P.CONS ---
History of Present Illness - Reason for Consult Consult date: 03/17/24 Antibiotic recommendation Requesting physician: Meenakshi Weeks - Chief Complaint Left thumb pain swelling and redness x few days - History of Present Illness Patient is a 49-year-old male with a past medical history significant for hyperlipidemia reflux anxiety bipolar depression presenting to the hospital with increasing swelling and redness to the left thumb area apparently the patient has been working on building a dock with his friend over the course of 4 days 3 days before presentation to the hospital patient noticed to having swelling and some redness to the left hand and thumb area patient due to went to the urgent care with the patient was started on oral antibiotic however patient not very clear about the name of that antibiotic patient subsequent noticed to having worsening swelling and redness to the left thumb area patient describes the pain to be throbbing moderate in intensity without any radiation with worsening symptoms the patient presented to hospital on arrival to the ER patient was afebrile he did have 1 low-grade fever of 99 F patient was not tachycardic hypotensive or hypoxic patient did have white count of 13.4 with a left shift creatinine 0.88 electrolytes are normal liver enzymes normal CRP is 4.4 patient was evaluated by orthopedic surgery and the patient was taken to the OR this morning noticed to have left thumb purulent flexor tenosynovitis status post left thumb incision and drainage culture obtained patient has been started on vancomycin and Unasyn infectious disease was consulted for further management of antibiotic therapy Review of Systems Positive point and negatives has been mentioned in the HPI, complete review of systems was performed and all other systems are negative Past Medical History Past Medical History: GERD/Reflux, Hyperlipidemia History of Any Multi-Drug Resistant Organisms: None Reported Past Surgical History: Orthopedic Surgery Additional Past Surgical History / Comment(s): Rotator cuff Past Anesthesia/Blood Transfusion Reactions: No Reported Reaction Past Psychological History: Anxiety, Bipolar, Depression Smoking Status: Current every day smoker Past Alcohol Use History: None Reported Past Drug Use History: Marijuana - Past Family History Father Family Medical History: Unable to Obtain Mother Family Medical History: Unable to Obtain Medications and Allergies Home Medications Medication Instructions Recorded Confirmed Type Atorvastatin [Lipitor] 20 mg PO HS 10/23/23 03/16/24 History Levocetirizine Dihydrochloride 5 mg PO HS 10/23/23 03/16/24 History [Xyzal] Multivitamins, Thera [Multivitamin 1 tab PO DAILY 10/23/23 03/16/24 History (formulary)] [place]-3/Dha/Epa/Fish Oil [Fish Oil 1 cap PO BID 10/23/23 03/16/24 History 1,000 mg Softgel] Tamsulosin HCl [Flomax] 0.4 mg PO HS 10/23/23 03/16/24 History Testosterone Cap Otc 1 tab PO DAILY 10/23/23 03/16/24 History lamoTRIgine [LaMICtal] 150 mg PO BID 10/23/23 03/16/24 History Cariprazine HCl [Vraylar] 1.5 mg PO HS 03/16/24 03/16/24 History Omeprazole Magnesium [PriLOSEC OTC] 20 mg PO BID 03/16/24 03/16/24 History Propranolol LA [Inderal LA] 60 mg PO BID 03/16/24 03/16/24 History Sertraline [Zoloft] 50 mg PO HS 03/16/24 03/16/24 History Sulfamethox-Tmp 800-160Mg [Bactrim 1 tab PO BID 03/16/24 03/16/24 History DS 800-160 mg] busPIRone HCl [Buspar] 20 mg PO BID 03/16/24 03/16/24 History Allergies Allergy/AdvReac Type Severity Reaction Status Date / Time No Known Allergies Allergy Verified 03/16/24 10:53 Physical Exam Vitals: Vital Signs Temp Pulse Pulse Resp BP BP Pulse Ox 03/17/24 10:47 70 18 127/72 99 03/17/24 10:32 61 18 120/68 99 03/17/24 10:17 97.0 F L 65 16 124/68 98 03/17/24 07:00 98.7 F 60 16 115/97 95 03/17/24 02:00 98.6 F 61 16 129/78 95 03/16/24 20:00 99.0 F 57 L 16 119/72 97 03/16/24 15:00 99.2 F 62 12 112/75 100 Intake and Output 03/16/24 03/17/24 03/17/24 22:59 06:59 14:59 Intake Total 740 1140 700 Output Total 10 Balance 740 1140 690 Intake: IV 700 Intake, IV Titration 500 1140 Amount Ampicillin-Sulbactam 3 gm 100 In Sodium Chloride 0.9% 100 ml @ 200 mls/hr IVPB Q8HR [facility] Rx#:[id number] Sodium Chloride 0.9% 1, 1040 000 ml @ 130 mls/hr IV . Q7H42M [facility] Rx#:[id number] Vancomycin 1,500 mg In 500 Sodium Chloride 0.9% 500 ml 500 ml @ 167 mls/hr IVPB Q12H [facility] Rx#: [id number] Oral 240 0 Output: Estimated Blood Loss 10 Other: Voiding Method Toilet Toilet # Voids 1 1 GENERAL DESCRIPTION: Middle-aged male lying in bed, no distress. No tachypnea or accessory muscle of respiration use. HEENT: Shows Pallor , no scleral icterus. Oral mucous membrane is dry. No pharyngeal erythema or thrush NECK: Trachea central, no thyromegaly. LUNGS: Unlabored breathing. Clear to auscultation anteriorly. No wheeze or crackle. HEART: S1, S2, regular rate and rhythm. No loud murmur ABDOMEN: Soft, no tenderness , guarding or rigidity, no organomegaly EXTREMITIES: Left thumb is currently dressed in OR dressing review of the picture taken before surgery left thumb was diffusely swollen and right SKIN: No rash, no masses palpable. NEUROLOGICAL: The patient is awake, alert, oriented x3, mood and affect normal. Results CBC & Chem 7: 03/17/24 02:49 03/17/24 02:49 Labs: Abnormal Lab Results - Last 24 Hours (Table) 03/16/24 03/16/24 03/17/24 Range/Units 09:18 09:18 02:49 WBC 12.9 H (3.8-10.6) k/uL RBC 4.23 L (4.30-5.90) m/uL Hgb 12.8 L (13.0-17.5) gm/dL Hct 38.4 L (39.0-53.0) % Neutrophils # 10.0 H (1.3-7.7) k/uL ESR 20 H (0-15) mm/Hr Chloride (98-107) mmol/L Glucose (74-99) mg/dL C-Reactive Protein 4.4 H (<1.0) mg/dL Total Protein (6.3-8.2) g/dL 07/28/24 Range/Units 02:49 WBC (3.8-10.6) k/uL RBC (4.30-5.90) m/uL Hgb (13.0-17.5) gm/dL Hct (39.0-53.0) % Neutrophils # (1.3-7.7) k/uL ESR (0-15) mm/Hr Chloride 109 H (98-107) mmol/L Glucose 102 H (74-99) mg/dL C-Reactive Protein (<1.0) mg/dL Total Protein 5.9 L (6.3-8.2) g/dL Assessment and Plan (1) Cellulitis of left hand Current Visit: Yes Status: Acute Code(s): L03.114 - CELLULITIS OF LEFT UPPER LIMB SNOMED Code(s): 15600007296671295 (2) Flexor tenosynovitis of thumb Current Visit: Yes Status: Acute Code(s): M65.9 - SYNOVITIS AND TENOSYNOVITIS, UNSPECIFIED SNOMED Code(s): 359312053 Plan: 1patient presented to hospital with left thumb swelling and redness failing outpatient treatment has been diagnosed with the purulent flexor tenosynovitis of the left thumb status post I&D will need to cover for the gram-positive skin rodney gram-negative infection less likely but not entirely excluded 2vancomycin pharmacy to dose target trough of 15 while watching kidney function and Vanco trough closely and adjust the dose of Unasyn to 3 g every 6 hours Question concern were answered. We will follow on clinical condition and cultures to further adjust medication if needed Thank you for this consultation we will follow the patient along with you Dictation was produced using [employer] dictation software. please excuse any grammatical, word or spelling errors. Time with Patient: Greater than 30
[2024-03-18] MEDS: HYDROmorphone 0.5 MG/0.5 ML SYRINGE IVP PRN (08:24)
[2024-03-18] MEDS: AMPICILLIN-SULBACTAM 3 GM in SODIUM CHLORIDE 0.9% 100 ML IVPB SCH (08:26)
[2024-03-18 08:44] LABS: African American GFR (CKD) >90 (>60 ml/min/1.73 sqM); Non-African American GFR(CKD) >90 (>60 ml/min/1.73 sqM)
[2024-03-18] MEDS: VANCOMYCIN TROUGH DUE 1 EACH MISC MISCELLANE ONE (10:16)
--- NOTE | 2024-03-18 12:17 | P.PN ---
Subjective Progress Note Date: 03/18/24 Principal diagnosis: Left hand/thumb abscess. Left hand/thumb cellulitis. Is a 49-year-old male who developed left hand and thumb pain and swelling over the past several days. He states that he had been working on building a dock with his friend over the course of 4 days. He states that on Monday this past week he began noticing swelling to the hand and thumb. He went to urgent care yesterday and was placed on oral antibiotics. He woke up early this morning with significant swelling and redness. He presented to the emergency department. He is admitted for IV antibiotics and we are consulted for orthopedic evaluation of the left hand. 03/18/2024: The patient is postop day #1 status post I&D of the left thumb and hand. He has no new complaints or concerns today. He reports no fever or chills. Gram stain reveals gram-positive cocci. Culture is pending. Objective - Vital Signs Vital signs: Vital Signs Temp 98.2 F 03/18/24 07:37 Pulse 60 03/18/24 08:00 Resp 17 03/18/24 08:00 BP 119/70 03/18/24 07:37 Pulse Ox 98 03/18/24 09:52 FiO2 Intake & Output 03/17/24 03/18/24 03/18/24 18:59 06:59 18:59 Intake Total 1718 Output Total 10 Balance 1708 Intake: IV 700 Intake, IV Titration 900 Amount Ampicillin-Sulbactam 3 gm 100 In Sodium Chloride 0.9% 100 ml @ 200 mls/hr IVPB Q8HR [facility] Rx#:[id number] Lactated Ringers 1,000 ml 300 @ 0 mls/hr IV [facility] Rx#:[id number] Vancomycin 1,500 mg In 500 Sodium Chloride 0.9% 500 ml 500 ml @ 167 mls/hr IVPB Q12H [facility] Rx#: [id number] Oral 118 Output: Estimated Blood Loss 10 Other: Voiding Method Toilet # Voids 3 - Exam This is a pleasant 49-year-old male in no acute distress. He is alert and oriented x 3. Exam of the left upper extremity reveals that his splint and dressing are intact. He has finger motion of the remaining fingers. Neurovascular status to the upper extremity is intact. - Labs CBC & Chem 7: 03/17/24 02:49 03/18/24 08:12 Labs: Microbiology - Last 24 Hours (Table) 03/17/24 09:39 Gram Stain - Preliminary Finger - Left First 03/16/24 09:25 Blood Culture - Preliminary Blood 03/16/24 09:35 Blood Culture - Preliminary Blood Assessment and Plan (1) Cellulitis of hand Current Visit: Yes Status: Acute Code(s): L03.119 - CELLULITIS OF UNSPECIFIED PART OF LIMB SNOMED Code(s): 43683991 Plan: The clinical findings are discussed with the patient and his . It is recommended he continue on IV antibiotics. We are awaiting evaluation with infectious disease. We will change dressing tomorrow.
--- NOTE | 2024-03-18 14:30 | P.PN ---
Subjective Progress Note Date: 03/18/24 Principal diagnosis: I reviewed the documentation as provided by the LOLY above, who is the original author of this note. I agree with the documented assessment and plan, with the following changes: none Hospital course: Patient is a 49-year-old male with a past medical history of hypertension, hyperlipidemia, GERD, bipolar disorder, anxiety, nicotine dependence and cannabinoid use. He presented to the emergency department secondary to concerns of left hand pain concerning for infection. Patient reports that he was working on a deck outside and they are cut or got a splinter in his hand. Patient repor ts initially he squeezed some clear fluid out of it and it seemed to be okay but 2 days ago he developed some redness and pain and went to his PCPs office yesterday where he was given a tetanus shot and started on oral antibiotics with Bactrim. Patient reports over the past 24 hours the swelling and pain significantly worsened accompanied by fevers and chills and he is now having limited movement of his thumb so he came to the emergency department for further evaluation. Upon arrival to our facility patient underwent evaluation in the ER. Vital signs upon arrival show blood pressure 125/78, heart rate 68, respiratory rate 16, temp 98.7 F, and SpO2 of 98% on room air. Labs completed and reviewed. CBC showing leukocytosis with WBC count of 13.4. BMP showing hyperchloremia with chloride of 109 and mild hyperglycemia with glucose of 155. Lactic acid was normal findings at 1.6. Liver profile was unremarkable. Patient was started on IV antibiotics with Unasyn admitted under services with consultation to orthopedic surgery team. On 03/17/2024 patient was taken to OR and underwent I&D. Physical exam: Patient seen and fully evaluated at bedside this morning. He currently reports only mild pain to left hand and thumb. Sensation remains intact. Patient denies having any other complaints or needs at this time. Vital signs reviewed and stable. General: Nontoxic, no distress and appears stated age. Derm: Skin warm and dry, normal coloration for ethnicity. Head: Atraumatic, normocephalic and symmetric. Eyes: EOMs intact, no lid lag, and anicteric sclera Mouth: no lip lesions, mucus membranes moist Cardiovascular: regular rate and rhythm with normal S1S2, no murmur, positive posterior tibial pulses bilaterally, and cap refill < 2 seconds. Lungs: Respirations even, regular, and unlabored on room air. Lungs CTA bilaterally, no rhonchi, no rales, no wheezing, and no accessory muscle usage. Abdominal: soft, nontender to palpation, no guarding, no appreciable organomegaly Ext:. No gross muscle atrophy, no edema, no contractures. Postoperative dressing with Cl wrap intact to left hand and thumb Neuro: Speech clear, face symmetrical and CN II-XII grossly intact with no noted focal neuro deficits Psych: Alert and oriented to person, place, time, and situation. Appropriate and pleasant affect. Assessment and Plan of Care: Cellulitis of the left hand with purulent flexor tenosynovitis of the left thumb Leukocytosis secondary to above -Continue IV antibiotics with Unasyn 3 g every 6 hours and vancomycin 1500 mg every 8 hours. Closely monitor renal function and vancomycin trough for any signs of vancomycin associated renal toxicity. -Orthopedic surgery team following took patient for surgical I&D on 03/17/2024 and cultures were obtained and sent to lab for analysis. -Infectious disease following, started patient on vancomycin in addition to Unasyn -Follow-up on blood culture and wound culture results -Continue symptomatic care and pain management -ESR was elevated at 20 and CRP of 4.4. -Repeat CBC to monitor for improvement of leukocytosis Hypertension Hyperlipidemia Bipolar disorder Anxiety Patient to continue daily medication regimen with atorvastatin 20 mg nightly, BuSpar 20 mg twice daily, Vraylar 1.5 mg nightly, Lamictal 150 mg twice daily, propranolol 60 mg twice daily, and Zoloft 50 mg nightly, GERD Continue daily medication regimen with Protonix 40 mg twice daily. BPH Continue Flomax 0.4 mg nightly. Data and imaging reviewed: Labs reviewed. Creatinine 0.78 and GFR greater than 90. Vancomycin trough subtherapeutic at 6.8. Vital signs reviewed. Blood pressure 119/70, heart rate 60, respiratory rate 17, temp 98.2 F, and SpO2 of 99% on room air. CODE STATUS: Full code DVT prophylaxis: Lovenox Anticipated discharge date: Pending clinical course Anticipated discharge place: Home Patient was seen independently by Nurse Practitioner. This document was prepared using [employer] dictation software. Please allow for e rrors in staff educator while rare they do occur. . Objective - Vital Signs Vital signs: Vital Signs Temp 98.2 F 03/18/24 07:37 Pulse 60 03/18/24 07:37 Resp 17 03/18/24 07:37 BP 119/70 03/18/24 07:37 Pulse Ox 99 03/18/24 07:37 FiO2 Intake & Output 03/17/24 03/18/24 03/18/24 18:59 06:59 18:59 Intake Total 1718 Output Total 10 Balance 1708 Intake: IV 700 Intake, IV Titration 900 Amount Ampicillin-Sulbactam 3 gm 100 In Sodium Chloride 0.9% 100 ml @ 200 mls/hr IVPB Q8HR [facility] Rx#:[id number] Lactated Ringers 1,000 ml 300 @ 0 mls/hr IV .[facility] Rx#:[id number] Vancomycin 1,500 mg In 500 Sodium Chloride 0.9% 500 ml 500 ml @ 167 mls/hr IVPB Q12H [facility] Rx#: [id number] Oral 118 Output: Estimated Blood Loss 10 Other: # Voids 3 - Labs CBC & Chem 7: 03/17/24 02:49 03/18/24 08:12 Labs: Microbiology - Last 24 Hours (Table) 03/17/24 09:39 Gram Stain - Preliminary Finger - Left First 03/16/24 09:25 Blood Culture - Preliminary Blood 03/16/24 09:35 Blood Culture - Preliminary Blood
[2024-03-18] MEDS: HYDROcodone/APAP 5-325MG 1 EACH TAB PO PRN (15:15)
[2024-03-18] MEDS: VANCOMYCIN 1,500 MG in SODIUM CHLORIDE 0.9% 500 ML 500 ML IVPB SCH (22:20)
--- NOTE | 2024-03-18 22:29 | P.PN ---
Subjective Progress Note Date: 03/18/24 Principal diagnosis: Reason for follow-up is left thumb purulent flexor tenosynovitis Patient is a 49-year-old male with a past medical history significant for hyperlipidemia reflux anxiety bipolar depression presenting to the hospital with increasing swelling and redness to the left thumb area patient has been diagnosed with a purulent flexor tenosynovitis of the left thumb status post I&D and deep culture. On today's evaluation that is 03/18/2024, the patient continues to be afebrile, the patient is on room air and breathing comfortably, the Pt denies having any chest pain or cough, the patient denies having any abdominal pain no vomiting or any diarrhea, patient denies any worsening pain to the left thumb area. The patient white count slightly down to 12.9 creatinine 0.78 cultures currently pending Objective - Vital Signs Vital signs: Vital Signs Temp 98.2 F 03/18/24 07:37 Pulse 60 03/18/24 08:00 Resp 17 03/18/24 08:00 BP 119/70 03/18/24 07:37 Pulse Ox 98 03/18/24 09:52 FiO2 Intake & Output 03/17/24 03/18/24 03/18/24 18:59 06:59 18:59 Intake Total 1718 Output Total 10 Balance 1708 Intake: IV 700 Intake, IV Titration 900 Amount Ampicillin-Sulbactam 3 gm 100 In Sodium Chloride 0.9% 100 ml @ 200 mls/hr IVPB Q8HR [facility] Rx#:[id number] Lactated Ringers 1,000 ml 300 @ 0 mls/hr IV [facility] Rx#:[id number] Vancomycin 1,500 mg In 500 Sodium Chloride 0.9% 500 ml 500 ml @ 167 mls/hr IVPB Q12H [facility] Rx#: [id number] Oral 118 Output: Estimated Blood Loss 10 Other: Voiding Method Toilet # Voids 3 - Exam GENERAL DESCRIPTION: Middle-age male lying in bed in no distress RESPIRATORY SYSTEM: Unlabored breathing , decreased breath sounds at bases HEART: S1 S2 regular rate and rhythm , ABDOMEN: Soft , no tenderness EXTREMITIES: Left arm is currently dressed no drainage on the dressing - Labs CBC & Chem 7: 03/17/24 02:49 03/18/24 08:12 Labs: Microbiology - Last 24 Hours (Table) 03/17/24 09:39 Gram Stain - Preliminary Finger - Left First 03/16/24 09:25 Blood Culture - Preliminary Blood 03/16/24 09:35 Blood Culture - Preliminary Blood Assessment and Plan (1) Cellulitis of left hand Current Visit: Yes Status: Acute Code(s): L03.114 - CELLULITIS OF LEFT UPPER LIMB SNOMED Code(s): 60921950704412030 (2) Flexor tenosynovitis of thumb Current Visit: Yes Status: Acute Code(s): M65.9 - SYNOVITIS AND TENOSYNOVITIS, UNSPECIFIED SNOMED Code(s): 399780315 Plan: 1patient presented to hospital with left thumb swelling and redness failing outpatient treatment has been diagnosed with the purulent flexor tenosynovitis of the left thumb status post I&D will need to cover for the gram-positive skin rodney gram-negative infection less likely but not entirely excluded 2patient local cultures currently pending white count is trending down to continue with vancomycin pharmacy to dose target and Unasyn while waiting for the culture to finalize Dictation was produced using [employer] dictation software. please excuse any grammatical, word or spelling errors. Time with Patient: Less than 30
--- NOTE | 2024-03-19 08:35 | P.PN ---
Subjective Progress Note Date: 03/19/24 Principal diagnosis: Status post I&D left thumb This is a 49 year-old male post left thumb I&D. This is post-op day 2. The patient was evaluated at the bedside today. The patient denies nausea, vomiting, abdominal pain, shortness of breath, and chest pain this morning. He states his pain is controlled at this time. He is currently on IV antibiotics per infectious disease. Cultures have resulted with presumptive Staph aureus this morning and final cultures and sensitivity are still pending. Objective - Vital Signs Vital signs: Vital Signs Temp 98.4 F 03/19/24 07:29 Pulse 59 L 03/19/24 07:29 Resp 16 03/19/24 07:29 BP 133/81 03/19/24 07:29 Pulse Ox 96 03/19/24 07:29 FiO2 Intake & Output 03/18/24 03/19/24 03/19/24 18:59 06:59 18:59 Intake Total 236 Balance 236 Intake: Oral 236 Other: Voiding Method Toilet Toilet # Voids 10 1 - Exam The patient does not appear in acute distress. Alert and orientated x3. Operative dressing and splint removed today. Incision appears fine with no erythema or active drainage. There are some areas of skin loss and maceration but overall the incision is stable. He is able to wiggle his thumb slightly without significant pain. Good finger motion. Sensation and circulatory status is intact. - Labs CBC & Chem 7: 03/17/24 02:49 03/18/24 08:12 Labs: Microbiology - Last 24 Hours (Table) 03/16/24 09:25 Blood Culture - Preliminary Blood 03/16/24 09:35 Blood Culture - Preliminary Blood 03/17/24 09:39 Gram Stain - Preliminary Finger - Left First Wound Culture - Preliminary Presumptive Staph aureus Assessment and Plan (1) Cellulitis of left hand Current Visit: Yes Status: Acute Code(s): L03.114 - CELLULITIS OF LEFT UPPER LIMB SNOMED Code(s): 12393647759363871 (2) Flexor tenosynovitis of thumb Current Visit: Yes Status: Acute Code(s): M65.9 - SYNOVITIS AND TENOSYNOVITIS, UNSPECIFIED SNOMED Code(s): 308560508 Plan: The clinical findings and culture results were discussed with the patient. Continue daily dressing changes and as needed for drainage. We will await final culture and sensitivity and recommendations by infectious disease for outpatient antibiotics. The patient is stable orthopedically for discharge home when antibiotics are determined. We will continue to follow the patient closely.
[2024-03-19 08:45] LABS: HCT 33.6 % (39.6-50.0); HGB 11.1 g/dL (13.0-17.0); MCH 29.5 pg (27.0-32.0); MCV 89.4 FL (80.0-97.0); Mean Platelet Volume 10.9 FL (9.5-12.2); NRBC Per 100 WBC 0 X 10*3/uL (0.00-0.01); Platelet Count 259 X 10*3/uL (140-440); RBC 3.76 X 10*6/uL (4.40-5.60); RDW 12.5 % (11.5-14.5); WBC 7.63 X 10*3/uL (4.50-10.00)
[2024-03-19 09:24] LABS: ALT 19 U/L (10-49); AST 20 U/L (14-35); Albumin 3.8 g/dL (3.8-4.9); Albumin/Globulin Ratio 2.38 Ratio (1.60-3.17); Alkaline Phosphatase 88 U/L (41-126); BUN/Creat Ratio 8.89 Ratio (12.00-20.00); Calcium 8.6 mg/dL (8.7-10.3); Carbon Dioxide 24.1 mmol/L (21.6-31.8); Chloride 108 mmol/L (96-109); Globulin 1.6 g/dL (1.6-3.3); Glucose 100 mg/dL (70-110); Magnesium 1.9 mg/dL (1.5-2.4); Potassium 4.2 mmol/L (3.5-5.5); Sodium 143 mmol/L (135-145); Total Bilirubin 0.3 mg/dL (0.3-1.2); Total Protein 5.4 g/dL (6.2-8.2)
--- NOTE | 2024-03-19 12:20 | P.PN ---
Subjective Progress Note Date: 03/19/24 Hospital course: Patient is a 49-year-old male with a past medical history of hypertension, hyperlipidemia, GERD, bipolar disorder, anxiety, nicotine dependence and cannabinoid use. He presented to the emergency department secondary to concerns of left hand pain concerning for infection. Patient reports that he was working on a deck outside and they are cut or got a splinter in his hand. Patient reports initially he squeezed some clear fluid out of it and it seemed to be okay but 2 days ago he developed some redness and pain and went to his PCPs office yesterday where he was given a tetanus shot and started on oral antibiotics with Bactrim. Patient reports over the past 24 hours the swelling and pain significantly worsened accompanied by fevers and chills and he is now having limited movement of his thumb so he came to the emergency department for further evaluation. Upon arrival to our facility patient underwent evaluation in the ER. Vital signs upon arrival show blood pressure 125/78, heart rate 68, respiratory rate 16, temp 98.7 F, and SpO2 of 98% on room air. Labs completed and reviewed. CBC showing leukocytosis with WBC count of 13.4. BMP showing hyperchloremia with chloride of 109 and mild hyperglycemia with glucose of 155. Lactic acid was normal findings at 1.6. Liver profile was unremarkable. Patient was started on IV antibiotics with Unasyn admitted under services with consultation to orthopedic surgery team. On 03/17/2024 patient was taken to OR and underwent I&D. Physical exam: Patient seen and fully evaluated at bedside this morning. He currently reports only mild pain to left hand and thumb. Sensation remains intact. Patient denies having any other complaints or needs at this time. Vital signs reviewed and stable. General: Nontoxic, no distress and appears stated age. Derm: Skin warm and dry, normal coloration for ethnicity. Head: Atraumatic, normocephalic and symmetric. Eyes: EOMs intact, no lid lag, and anicteric sclera Mouth: no lip lesions, mucus membranes moist Cardiovascular: regular rate and rhythm with normal S1S2, no murmur, positive posterior tibial pulses bilaterally, and cap refill < 2 seconds. Lungs: Respirations even, regular, and unlabored on room air. Lungs CTA bilaterally, no rhonchi, no rales, no wheezing, and no accessory muscle usage. Abdominal: soft, nontender to palpation, no guarding, no appreciable organomegaly Ext:. No gross muscle atrophy, no edema, no contractures. Postoperative dressing with Cl wrap intact to left hand and thumb Neuro: Speech clear, face symmetrical and CN II-XII grossly intact with no noted focal neuro deficits Psych: Alert and oriented to person, place, time, and situation. Appropriate and pleasant affect. Assessment and Plan of Care: Cellulitis of the left hand with purulent flexor tenosynovitis of the left thumb Leukocytosis secondary to above -Continue IV antibiotics with Unasyn 3 g every 6 hours and vancomycin 1500 mg every 8 hours. Closely monitor renal function and vancomycin trough for any signs of vancomycin associated renal toxicity. -Orthopedic surgery team following took patient for surgical I&D on 03/17/2024 and cultures were obtained and sent to lab for analysis. -Infectious disease following, reviewed documentation in chart. -Wound cultures positive for presumptive Staph aureus, awaiting final culture and sensitivity report. -Blood culture showing no growth to date. -Continue symptomatic care and pain management -ESR was elevated at 20 and CRP of 4.4. -Repeat CBC to monitor for improvement of leukocytosis Hypertension Hyperlipidemia Bipolar disorder Anxiety Patient to continue daily medication regimen with atorvastatin 20 mg nightly, BuSpar 20 mg twice daily, Vraylar 1.5 mg nightly, Lamictal 150 mg twice daily, propranolol 60 mg twice daily, and Zoloft 50 mg nightly, GERD Continue daily medication regimen with Protonix 40 mg twice daily. BPH Continue Flomax 0.4 mg nightly. Data and imaging reviewed: -Wound cultures positive for presumptive Staph aureus, awaiting final culture and sensitivity report. -Blood culture showing no growth to date. -Morning labs completed and reviewed. CBC showing resolution of leukocytosis with WBC count of 7.63 and stable hemoglobin of 11.1. BMP unremarkable. Magnesium normal findings at 1.9. And liver profile normal findings. -Vital signs reviewed. Blood pressure 133/81, heart rate 59, respiratory rate 16, temp 98.4 F, and SpO2 of 96% on room air. CODE STATUS: Full code DVT prophylaxis: Lovenox Anticipated discharge date: Pending clinical course Anticipated discharge place: Home Patient was seen independently by Nurse Practitioner. This document was prepared using [employer] dictation software. Please allow for errors in field crop farm worker while rare they do occur. .Devon Ramos NP rendered care for this patient independently, reviewed the findings and plan as documented in the note above. I did not physically speak with or examine the patient on this date. Objective - Vital Signs Vital signs: Vital Signs Temp 98.4 F 03/19/24 07:29 Pulse 59 L 03/19/24 07:29 Resp 16 03/19/24 07:29 BP 133/81 03/19/24 07:29 Pulse Ox 96 03/19/24 07:29 FiO2 Intake & Output 03/18/24 03/19/24 03/19/24 18:59 06:59 18:59 Intake Total 236 Balance 236 Intake: Oral 236 Other: Voiding Method Toilet Toilet # Voids 10 1 - Labs CBC & Chem 7: 03/19/24 02:45 03/20/24 09:05 Labs: Microbiology - Last 24 Hours (Table) 03/16/24 09:25 Blood Culture - Preliminary Blood 03/16/24 09:35 Blood Culture - Preliminary Blood 03/17/24 09:39 Gram Stain - Preliminary Finger - Left First Wound Culture - Preliminary Presumptive Staph aureus
--- NOTE | 2024-03-20 08:13 | P.PN ---
Subjective Progress Note Date: 03/19/24 Principal diagnosis: Reason for follow-up is left thumb purulent flexor tenosynovitis Patient is a 49-year-old male with a past medical history significant for hyperlipidemia reflux anxiety bipolar depression presenting to the hospital with increasing swelling and redness to the left thumb area patient has been diagnosed with a purulent flexor tenosynovitis of the left thumb status post I&D and deep culture. On today's evaluation that is 03/19/2024, Patient is afebrile patient is currently on room air and denies having any shortness of breath, the patient denies any chest pain or cough, the patient denies any nausea vomiting did not have any abdominal pain and no diarrhea patient has not worsening pain to the left arm area. Patient white count 7.63, creatinine 0.9 local culture growing Staph aureus with sensitivities pending Objective - Vital Signs Vital signs: Vital Signs Temp 98.4 F 03/19/24 07:29 Pulse 59 L 03/19/24 07:29 Resp 16 03/19/24 07:29 BP 133/81 03/19/24 07:29 Pulse Ox 96 03/19/24 07:29 FiO2 Intake & Output 03/18/24 03/19/24 03/19/24 18:59 06:59 18:59 Intake Total 236 Balance 236 Intake: Oral 236 Other: Voiding Method Toilet Toilet # Voids 10 1 - Exam GENERAL DESCRIPTION: Middle-age male lying in bed in no distress RESPIRATORY SYSTEM: Unlabored breathing , decreased breath sounds at bases HEART: S1 S2 regular rate and rhythm , ABDOMEN: Soft , no tenderness EXTREMITIES: Left thumb did have significant excoriation swelling - Labs CBC & Chem 7: 03/19/24 02:45 03/19/24 02:45 Labs: Abnormal Lab Results - Last 24 Hours (Table) 03/19/24 03/19/24 Range/Units 02:45 02:45 RBC 3.76 L (4.40-5.60) X 10*6/uL Hgb 11.1 L (13.0-17.0) g/dL Hct 33.6 L (39.6-50.0) % BUN 8.0 L (9.0-27.0) mg/dL BUN/Creatinine Ratio 8.89 L (12.00-20.00) Ratio Calcium 8.6 L (8.7-10.3) mg/dL Total Protein 5.4 L (6.2-8.2) g/dL Microbiology - Last 24 Hours (Table) 03/16/24 09:25 Blood Culture - Preliminary Blood 03/16/24 09:35 Blood Culture - Preliminary Blood 03/17/24 09:39 Gram Stain - Preliminary Finger - Left First Wound Culture - Preliminary Presumptive Staph aureus Assessment and Plan (1) Cellulitis of left hand Current Visit: Yes Status: Acute Code(s): L03.114 - CELLULITIS OF LEFT UPPER LIMB SNOMED Code(s): 90446210986569410 (2) Flexor tenosynovitis of thumb Current Visit: Yes Status: Acute Code(s): M65.9 - SYNOVITIS AND TENOSYNOVITIS, UNSPECIFIED SNOMED Code(s): 523394539 Plan: 1patient presented to hospital with left thumb swelling and redness failing outpatient treatment has been diagnosed with the purulent flexor tenosynovitis of the left thumb status post I&D will need to cover for the gram-positive skin rodney gram-negative infection less likely but not entirely excluded 2patient local cultures currently growing Staph aureus with sensitivities pending patient did have extensive infection to the left thumb and will benefit from course of IV antibiotic therapy with currently waiting for the sensitivity of the Staph aureus to determine midline versus PICC line placement for outpatient IV antibiotics continue with the current Unasyn and Vanco at this point Dictation was produced using [employer] dictation software. please excuse any grammatical, word or spelling errors. Time with Patient: Less than 30
--- NOTE | 2024-03-20 08:50 | P.PN ---
Subjective Progress Note Date: 03/20/24 Principal diagnosis: Status post I&D left thumb This is a 49 year-old male post left thumb I&D. This is post-op day 3. The patient was evaluated at the bedside today. The patient denies nausea, vomiting, abdominal pain, shortness of breath, and chest pain this morning. He states his pain is controlled at this time. He is currently on IV antibiotics per infectious disease. Cultures have resulted with presumptive Staph aureus this morning and final cultures and sensitivity are still pending. Objective - Vital Signs Vital signs: Vital Signs Temp 98.2 F 03/20/24 06:25 Pulse 68 03/20/24 06:25 Resp 17 03/20/24 06:25 BP 149/84 03/20/24 06:25 Pulse Ox 93 L 03/20/24 06:25 FiO2 Intake & Output 03/19/24 03/20/24 03/20/24 18:59 06:59 18:59 Other: Voiding Method Toilet # Voids 3 1 - Exam The patient does not appear in acute distress. Alert and orientated x3. Dressing changed today. Incision appears fine with no erythema or active drainage. There are some areas of skin loss and maceration but overall the incision is stable. He is able to wiggle his thumb slightly without significant pain. Good finger motion. Sensation and circulatory status is intact. - Labs CBC & Chem 7: 03/19/24 02:45 03/19/24 02:45 Labs: Abnormal Lab Results - Last 24 Hours (Table) 03/19/24 Range/Units 02:45 BUN 8.0 L (9.0-27.0) mg/dL BUN/Creatinine Ratio 8.89 L (12.00-20.00) Ratio Calcium 8.6 L (8.7-10.3) mg/dL Total Protein 5.4 L (6.2-8.2) g/dL Microbiology - Last 24 Hours (Table) 03/16/24 09:25 Blood Culture - Preliminary Blood 03/16/24 09:35 Blood Culture - Preliminary Blood 03/17/24 09:39 Anaerobic Culture - Preliminary Finger - Left First Assessment and Plan (1) Cellulitis of left hand Current Visit: Yes Status: Acute Code(s): L03.114 - CELLULITIS OF LEFT UPPER LIMB SNOMED Code(s): 24032760780530466 (2) Flexor tenosynovitis of thumb Current Visit: Yes Status: Acute Code(s): M65.9 - SYNOVITIS AND TENOSYNOVITIS, UNSPECIFIED SNOMED Code(s): 057585693 Plan: The clinical findings and culture results were discussed with the patient. Continue daily dressing changes and as needed for drainage. We will await final culture and sensitivity and recommendations by infectious disease for outpatient antibiotics. The patient is stable orthopedically for discharge home when antibiotics are determined. We will continue to follow the patient closely.
[2024-03-20] MEDS: VANCOMYCIN TROUGH DUE 1 EACH MISC MISCELLANE ONE (11:45)
--- NOTE | 2024-03-20 14:00 | P.PN ---
Subjective Progress Note Date: 03/20/24 Hospital course: Patient is a 49-year-old male with a past medical history of hypertension, hyperlipidemia, GERD, bipolar disorder, anxiety, nicotine dependence and cannabinoid use. He presented to the emergency department secondary to concerns of left hand pain concerning for infection. Patient reports that he was working on a deck outside and they are cut or got a splinter in his hand. Patient reports initially he squeezed some clear fluid out of it and it seemed to be okay but 2 days ago he developed some redness and pain and went to his PCPs office yesterday where he was given a tetanus shot and started on oral antibiotics with Bactrim. Patient reports over the past 24 hours the swelling and pain significantly worsened accompanied by fevers and chills and he is now having limited movement of his thumb so he came to the emergency department for further evaluation. Upon arrival to our facility patient underwent evaluation in the ER. Vital signs upon arrival show blood pressure 125/78, heart rate 68, respiratory rate 16, temp 98.7 F, and SpO2 of 98% on room air. Labs completed and reviewed. CBC showing leukocytosis with WBC count of 13.4. BMP showing hyperchloremia with chloride of 109 and mild hyperglycemia with glucose of 155. Lactic acid was normal findings at 1.6. Liver profile was unremarkable. Patient was started on IV antibiotics with Unasyn admitted under services with consultation to orthopedic surgery team. On 03/17/2024 patient was taken to OR and underwent I&D. Physical exam: Patient seen and fully evaluated at bedside this morning. He currently reports only mild pain to left hand and thumb and is looking forward to discharge soon. Patient was updated we are waiting on final culture and sensitivity report and verbalized understanding. Sensation remains intact. Patient denies having any other complaints or needs at this time. Vital signs reviewed and stable. General: Nontoxic, no distress and appears stated age. Derm: Skin warm and dry, normal coloration for ethnicity. Head: Atraumatic, normocephalic and symmetric. Eyes: EOMs intact, no lid lag, and anicteric sclera Mouth: no lip lesions, mucus membranes moist Cardiovascular: regular rate and rhythm with normal S1S2, no murmur, positive posterior tibial pulses bilaterally, and cap refill < 2 seconds. Lungs: Respirations even, regular, and unlabored on room air. Lungs CTA bilaterally, no rhonchi, no rales, no wheezing, and no accessory muscle usage. Abdominal: soft, nontender to palpation, no guarding, no appreciable organomegaly Ext:. No gross muscle atrophy, no edema, no contractures. Postoperative dressing with Cl wrap intact to left hand and thumb Neuro: Speech clear, face symmetrical and CN II-XII grossly intact with no noted focal neuro deficits Psych: Alert and oriented to person, place, time, and situation. Appropriate and pleasant affect. Assessment and Plan of Care: Cellulitis of the left hand with purulent flexor tenosynovitis of the left thumb Leukocytosis secondary to above -Continue IV antibiotics with Unasyn 3 g every 6 hours and vancomycin 1250 mg every 8 hours. Closely monitor renal function and vancomycin trough for any signs of vancomycin associated renal toxicity. -Orthopedic surgery team following took patient for surgical I&D on 03/17/2024 and cultures were obtained and sent to lab for analysis. -Infectious disease following, discussed plan of care with Dr. Mccain. Patient will likely need extended course of IV antibiotics awaiting final sensitivity report to result. -Wound cultures positive for presumptive Staph aureus, awaiting final culture and sensitivity report. -Blood culture showing no growth to date. -Continue symptomatic care and pain management -ESR was elevated at 20 and CRP of 4.4. -Repeat CBC to monitor for improvement of leukocytosis Hypertension Hyperlipidemia Bipolar disorder Anxiety Patient to continue daily medication regimen with atorvastatin 20 mg nightly, BuSpar 20 mg twice daily, Vraylar 1.5 mg nightly, Lamictal 150 mg twice daily, propranolol 60 mg twice daily, and Zoloft 50 mg nightly, GERD Continue daily medication regimen with Protonix 40 mg twice daily. BPH Continue Flomax 0.4 mg nightly. Data and imaging reviewed: -Wound cultures positive for presumptive Staph aureus, awaiting final culture and sensitivity report. -Blood culture showing no growth to date. -Morning labs completed and reviewed. Vancomycin trough supratherapeutic at 22.1. Vancomycin dose decreased from 1500 mg every 8 hours down to 1250 mg every 8 hours. -Vital signs reviewed. Blood pressure 149/84, heart rate 68, respiratory rate 17, temp 98.2 F, and SpO2 of 93% on room air.. CODE STATUS: Full code DVT prophylaxis: Lovenox Anticipated discharge date: Pending clinical course Anticipated discharge place: Home Patient was seen independently by Nurse Practitioner. This document was prepared using [employer] dictation software. Please allow for errors in law tutor while rare they do occur. .Devon Ramos BRILLIANDEER LOPPER rendered care for this patient independently, reviewed the findings and plan as documented in the note above. I did not physically speak with or examine the patient on this date. Objective - Vital Signs Vital signs: Vital Signs Temp 98.2 F 03/20/24 06:25 Pulse 68 03/20/24 06:25 Resp 17 03/20/24 06:25 BP 149/84 03/20/24 06:25 Pulse Ox 93 L 03/20/24 06:25 FiO2 Intake & Output 03/19/24 03/20/24 03/20/24 18:59 06:59 18:59 Other: Voiding Method Toilet # Voids 3 1 - Labs CBC & Chem 7: 03/19/24 02:45 03/20/24 09:05 Labs: Abnormal Lab Results - Last 24 Hours (Table) 03/19/24 03/19/24 Range/Units 02:45 02:45 RBC 3.76 L (4.40-5.60) X 10*6/uL Hgb 11.1 L (13.0-17.0) g/dL Hct 33.6 L (39.6-50.0) % BUN 8.0 L (9.0-27.0) mg/dL BUN/Creatinine Ratio 8.89 L (12.00-20.00) Ratio Calcium 8.6 L (8.7-10.3) mg/dL Total Protein 5.4 L (6.2-8.2) g/dL Microbiology - Last 24 Hours (Table) 03/16/24 09:25 Blood Culture - Preliminary Blood 03/16/24 09:35 Blood Culture - Preliminary Blood 03/17/24 09:39 Anaerobic Culture - Preliminary Finger - Left First
[2024-03-20 14:46] LABS: African American GFR (CKD) >90 (>60 ml/min/1.73 sqM); Non-African American GFR(CKD) >90 (>60 ml/min/1.73 sqM)
[2024-03-20 19:21] VITALS: RESP 16
[2024-03-20] MEDS: VANCOMYCIN 1,250 MG in SODIUM CHLORIDE 0.9% 250 ML IVPB SCH (21:35)
[2024-03-21 02:06] VITALS: TEMP 97.9
[2024-03-21 08:00] VITALS: BP 154/82; PULSE 51
--- NOTE | 2024-03-21 08:07 | P.PN ---
Subjective Progress Note Date: 03/20/24 Principal diagnosis: Reason for follow-up is left thumb purulent flexor tenosynovitis Patient is a 49-year-old male with a past medical history significant for hyperlipidemia reflux anxiety bipolar depression presenting to the hospital with increasing swelling and redness to the left thumb area patient has been diagnosed with a purulent flexor tenosynovitis of the left thumb status post I&D and deep culture. On today's evaluation that is 03/20/2024, patient has been afebrile, patient is breathing comfortably and is currently on room air, patient denies having any significant cough no chest pain shortness of breath, patient denies nausea vomiting or diarrhea and no abdominal pain denies any worsening pain to the left thumb patient has been anxious to go home. Patient white count normalized to 7.63, creatinine 0.9 culture still showing Staph aureus with sensitivities pending Objective - Vital Signs Vital signs: Vital Signs Temp 98.2 F 03/20/24 06:25 Pulse 68 03/20/24 06:25 Resp 17 03/20/24 06:25 BP 149/84 03/20/24 06:25 Pulse Ox 93 L 03/20/24 06:25 FiO2 Intake & Output 03/19/24 03/20/24 03/20/24 18:59 06:59 18:59 Intake Total 118 Balance 118 Intake: Oral 118 Other: Voiding Method Toilet # Voids 3 1 - Exam GENERAL DESCRIPTION: Middle-age male lying in bed in no distress RESPIRATORY SYSTEM: Unlabored breathing , decreased breath sounds at bases HEART: S1 S2 regular rate and rhythm , ABDOMEN: Soft , no tenderness EXTREMITIES: Left thumb did have significant excoriation swelling - Labs CBC & Chem 7: 03/19/24 02:45 03/20/24 09:05 Labs: Microbiology - Last 24 Hours (Table) 03/16/24 09:25 Blood Culture - Preliminary Blood 03/16/24 09:35 Blood Culture - Preliminary Blood 03/17/24 09:39 Anaerobic Culture - Preliminary Finger - Left First Assessment and Plan (1) Cellulitis of left hand Current Visit: Yes Status: Acute Code(s): L03.114 - CELLULITIS OF LEFT UPPER LIMB SNOMED Code(s): 35100396059111594 (2) Flexor tenosynovitis of thumb Current Visit: Yes Status: Acute Code(s): M65.9 - SYNOVITIS AND TENOSYNOVITIS, UNSPECIFIED SNOMED Code(s): 340017440 Plan: 1patient presented to hospital with left thumb swelling and redness failing outpatient treatment has been diagnosed with the purulent flexor tenosynovitis of the left thumb status post I&D will need to cover for the gram-positive skin rodney gram-negative infection less likely but not entirely excluded 2patient local cultures currently growing Staph aureus with sensitivities pending, we will told yesterday that the culture to be finalized yesterday evening however has not been finalized as of this morning nursing staff to f ollow-up with the micro lab once the sensitivities are finalized will be able to decide between PICC line or midline and home IV antibiotics for now continue with Unasyn and vancomycin Dictation was produced using [employer] dictation software. please excuse any grammatical, word or spelling errors. Time with Patient: Less than 30
--- NOTE | 2024-03-21 11:24 | P.DS ---
Providers Date of admission: 03/18/24 09:06 Attending physician: Dimas Zhao MD Consults: 03/16/24 09:16 Consult Physician Urgent Consulting Provider: Lexus Koch Consult Reason/Comments: hand infection Do you want consulting provider notified?: Already Contacted 03/17/24 09:58 Consult Physician Urgent Consulting Provider: Enrico Mccain Consult Reason/Comments: antibiotic recommendations Do you want consulting provider notified?: Yes Primary care physician: Zack Conway Hospital Course: Discharge Diagnosis: Cellulitis of the left hand with purulent flexor tenosynovitis of the left thumb. Orthopedic surgery team evaluated and took patient for surgical I&D on 03/17/2024. Wound cultures positive for Staph aureus. Blood culture showing no growth to date. Infectious disease following. Ordered for midline placement recommending discharge home on IV antibiotics with cefazolin. Leukocytosis secondary to above. Resolved. Hypertension Hyperlipidemia Bipolar disorder. Patient to continue daily medication regimen with atorvastat in 20 mg nightly, BuSpar 20 mg twice daily, Vraylar 1.5 mg nightly, Lamictal 150 mg twice daily, propranolol 60 mg twice daily, and Zoloft 50 mg nightly, Anxiety GERD. Continue daily medication regimen with omeprazole 20 mg twice daily. BPH. Continue Flomax 0.4 mg nightly. Hospital course: Patient is a 49-year-old male with a past medical history of hypertension, hyperlipidemia, GERD, bipolar disorder, anxiety, nicotine dependence and cannabinoid use. He presented to the emergency department secondary to concerns of left hand pain concerning for infection. Patient reports that he was working on a deck outside and they are cut or got a splinter in his hand. Patient reports initially he squeezed some clear fluid out of it and it seemed to be okay but 2 days ago he developed some redness and pain and went to his PCPs o ffice yesterday where he was given a tetanus shot and started on oral antibiotics with Bactrim. Patient reports over the past 24 hours the swelling and pain significantly worsened accompanied by fevers and chills and he is now having limited movement of his thumb so he came to the emergency department for further evaluation. Upon arrival to our facility patient underwent evaluation in the ER. Vital signs upon arrival show blood pressure 125/78, heart rate 68, respiratory rate 16, temp 98.7 F, and SpO2 of 98% on room air. Labs completed and reviewed. CBC showing leukocytosis with WBC count of 13.4. BMP showing hyperchloremia with chloride of 109 and mild hyperglycemia with glucose of 155. Lactic acid was normal findings at 1.6. Liver profile was unremarkable. Patient was started on IV antibiotics with Unasyn admitted under services with consultation to orthopedic surgery team. On 03/17/2024 patient was taken to OR and underwent I&D. Wound cultures positive for Staph aureus. Blood culture showing no growth to date. Infectious disease following. Ordered for midline placement recommending discharge home on IV antibiotics with cefazolin. Patient being discharged home with [facility] care and [facility] infusion center. Patient to follow-up outpatient with PCP in 1 to 2 days, hand surgeon on 03/28/2024, and infectious disease in 1 to 2 weeks. Physical exam: Vital signs reviewed and stable. General: Nontoxic, no distress and appears stated age. Derm: Skin warm and dry, normal coloration for ethnicity. Head: Atraumatic, normocephalic and symmetric. Eyes: EOMs intact, no lid lag, and anicteric sclera Mouth: no lip lesions, mucus membranes moist Cardiovascular: regular rate and rhythm with normal S1S2, no murmur, positive posterior tibial pulses bilaterally, and cap refill < 2 seconds. Lungs: Respirations even, regular, and unlabored on room air. Lungs CTA bilaterally, no rhonchi, no rales, no wheezing, and no accessory muscle usage. Abdominal: soft, nontender to palpation, no guarding, no appreciable organomegaly Ext:. No gross muscle atrophy, no edema, no contractures. Postoperative dressing with Cl wrap intact to left hand and thumb Neuro: Speech clear, face symmetrical and CN II-XII grossly intact with no noted focal neuro deficits Psych: Alert and oriented to person, place, time, and situation. Appropriate and pleasant affect. A total of 35 minutes of time were spent preparing this complex discharge summary. Pt was discharged on 03/21/2024 at 11:23 AM Patient was seen independently by Nurse Practitioner. This document was prepared using [employer] dictation software. Please allow for errors in nurse research while rare they do occur. Devon Ramos NP rendered care for this patient independently, reviewed the findings and plan as documented in the note above. I did not physically speak with or examine the patient on this date Patient Condition at Discharge: Stable Plan - Discharge Summary Discharge Rx Participant: No New Discharge Prescriptions: New HYDROcodone/APAP 5-325MG [Superior 5] 1 each PO Q4HR PRN #15 tab PRN Reason: Pain ceFAZolin [Kefzol] 2 gm IVP Q8HR #42 each Continue Testosterone Cap Otc 1 tab PO DAILY [place]-3/Dha/Epa/Fish Oil [Fish Oil 1,000 mg Softgel] 1 cap PO BID Atorvastatin [Lipitor] 20 mg PO HS Sertraline [Zoloft] 50 mg PO HS Cariprazine HCl [Vraylar] 1.5 mg PO HS Multivitamins, Thera [Multivitamin (formulary)] 1 tab PO DAILY Levocetirizine Dihydrochloride [Xyzal] 5 mg PO HS lamoTRIgine [LaMICtal] 150 mg PO BID Tamsulosin HCl [Flomax] 0.4 mg PO HS Omeprazole Magnesium [PriLOSEC OTC] 20 mg PO BID Propranolol LA [Inderal LA] 60 mg PO BID busPIRone HCl [Buspar] 20 mg PO BID Discontinued Sulfamethox-Tmp 800-160Mg [Bactrim DS 800-160 mg] 1 tab PO BID Discharge Medication List Atorvastatin [Lipitor] 20 mg PO HS 10/23/23 [History] Levocetirizine Dihydrochloride [Xyzal] 5 mg PO HS 10/23/23 [History] Multivitamins, Thera [Multivitamin (formulary)] 1 tab PO DAILY 10/23/23 [History] [place]-3/Dha/Epa/Fish Oil [Fish Oil 1,000 mg Softgel] 1 cap PO BID 10/23/23 [History] Tamsulosin HCl [Flomax] 0.4 mg PO HS 10/23/23 [History] Testosterone Cap Otc 1 tab PO DAILY 10/23/23 [History] lamoTRIgine [LaMICtal] 150 mg PO BID 10/23/23 [History] Cariprazine HCl [Vraylar] 1.5 mg PO HS 03/16/24 [History] Omeprazole Magnesium [PriLOSEC OTC] 20 mg PO BID 03/16/24 [History] Propranolol LA [Inderal LA] 60 mg PO BID 03/16/24 [History] Sertraline [Zoloft] 50 mg PO HS 03/16/24 [History] busPIRone HCl [Buspar] 20 mg PO BID 03/16/24 [History] HYDROcodone/APAP 5-325MG [Superior 5] 1 each PO Q4HR PRN #15 tab 03/19/24 [Rx] ceFAZolin [Kefzol] 2 gm IVP Q8HR #42 each 03/21/24 [Rx] Follow up Appointment(s)/Referral(s): Zack Conway MD [Primary Care Provider] - 1-2 days Lexus Koch DO [Doctor of Osteopathic Medicine] - 03/28/24 8:10 am [facility], [NON-STAFF] - 03/22/24 [facility], [REFERRING] - 03/21/24 (They will deliver tonight between 6PM-8PM) Enrico Mccain MD [STAFF PHYSICIAN] - 1 Week Patient Instructions/Handouts: Cellulitis (GEN) Activity/Diet/Wound Care/Special Instructions: Change dressing daily and as needed for drainage. May start to work on gentle range of motion of the thumb. Follow up next week for a wound recheck with Dr. Koch. Antibiotics per infectious disease Discharge Disposition: HOME WITH HOME HEALTH SERVICES
--- NOTE | 2024-03-21 12:40 | P.PN ---
Subjective Progress Note Date: 03/21/24 Principal diagnosis: Reason for follow-up is left thumb purulent flexor tenosynovitis Patient is a 49-year-old male with a past medical history significant for hyperlipidemia reflux anxiety bipolar depression presenting to the hospital with increasing swelling and redness to the left thumb area patient has been diagnosed with a purulent flexor tenosynovitis of the left thumb status post I&D and deep culture. On today's evaluation that is 03/21/2024, Patient is afebrile this morning patient denies having any chest pain shortness of breath or cough, the patient is breathing comfortably and currently on room air, patient denies any abdominal pain no diarrhea no nausea no vomiting patient has pain to the left thumb area. Patient did have a creatinine 0.80 as of yesterday cultures been finalized with MSSA Objective - Vital Signs Vital signs: Vital Signs Temp 97.9 F 03/21/24 07:57 Pulse 51 L 03/21/24 07:57 Resp 16 03/21/24 07:57 BP 154/82 03/21/24 07:57 Pulse Ox 94 L 03/21/24 07:57 FiO2 Intake & Output 03/20/24 03/21/24 03/21/24 18:59 06:59 18:59 Intake Total 118 Balance 118 Intake: Oral 118 Other: # Voids 3 1 - Exam GENERAL DESCRIPTION: Middle-age male lying in bed in no distress RESPIRATORY SYSTEM: Unlabored breathing , decreased breath sounds at bases HEART: S1 S2 regular rate and rhythm , ABDOMEN: Soft , no tenderness EXTREMITIES: Left thumb currently dressed no drainage on the dressing - Labs CBC & Chem 7: 03/19/24 02:45 03/20/24 09:05 Labs: Microbiology - Last 24 Hours (Table) 03/17/24 09:39 Gram Stain - Final Finger - Left First Wound Culture - Final Staphylococcus aureus Assessment and Plan (1) Cellulitis of left hand Current Visit: Yes Status: Acute Code(s): L03.114 - CELLULITIS OF LEFT UPPER LIMB SNOMED Code(s): 62846525665293164 (2) Flexor tenosynovitis of thumb Current Visit: Yes Status: Acute Code(s): M65.9 - SYNOVITIS AND TENOSYNOVITIS, UNSPECIFIED SNOMED Code(s): 660269821 Plan: 1patient presented to hospital with left thumb swelling and redness failing outpatient treatment has been diagnosed with the purulent flexor tenosynovitis of the left thumb status post I&D will need to cover for the gram-positive skin rodney gram-negative infection less likely but not entirely excluded 2patient local cultures has been finalized with MSSA antibiotic has been switched over to cefazolin 2 g every 8 hours as of last night patient currently waiting for midline placement will give a dose of Rocephin 2 g on discharge today so he does not miss any of his doses for today prescription for cefazolin has been given to the case management coordinator patient vishannon to follow-up in the office in 1 week Dictation was produced using [employer] dictation software. please excuse any grammatical, word or spelling errors. Time with Patient: Less than 30
== END 2024-03-21 13:45 | disposition home health service (06) | DRG 513 ==
LOC: EC 08:45 → 6NMEDSUR 09:16 → OBSVTOIN 03-18 09:06
PROVIDERS: ADMIT Family Medicine; ATTEND Family Medicine
PROC: 05HC33Z Insertion of Infusion Device into Left Basilic Vein, Percutaneous Approach (ICD-10-PCS; 2024-03-17)
PROC: 0L980ZZ Drainage of Left Hand Tendon, Open Approach (ICD-10-PCS; principal; 2024-03-17 08:03)
DX: M65.142 Other infective (teno)synovitis, left hand (principal); L02.512 Cutaneous abscess of left hand; L03.114 Cellulitis of left upper limb; E87.8 Other disorders of electrolyte and fluid balance, not elsewhere classified; D64.9 Anemia, unspecified; S61.042A Puncture wound with foreign body of left thumb without damage to nail, initial encounter; E78.5 Hyperlipidemia, unspecified; F31.9 Bipolar disorder, unspecified; I10 Essential (primary) hypertension; L03.012 Cellulitis of left finger; B95.61 Methicillin susceptible Staphylococcus aureus infection as the cause of diseases classified elsewhere; R73.9 Hyperglycemia, unspecified; F41.9 Anxiety disorder, unspecified; K21.9 Gastro-esophageal reflux disease without esophagitis; N40.0 Benign prostatic hyperplasia without lower urinary tract symptoms; F17.200 Nicotine dependence, unspecified, uncomplicated; Z79.890 Hormone replacement therapy; Z79.899 Other long term (current) drug therapy; Z28.310 Unvaccinated for COVID-19
CPT/HCPCS: 36415; 80053; 80202; 82565; 83605; 83735; 85025; 85027; 85610; 85652; 85730; 86140; 87040; 87070; 87075; 87077; 87186; 87205; 94760; 96365; 96366; 99285